=== PATIENT | male | born 1980 | race Caucasian/White ===

== ENCOUNTER 2016-10-29 13:44 | Emergency (ER) | payer SELFPAY ==
[~2016-10-29] VITALS: Ht 177.8 cm; Wt 75.0 kg
[2016-10-29 13:45] VITALS: BP 138/82; PULSE 82; RESP 15; TEMP 98.1; O2SAT 100
--- NOTE | 2016-10-29 14:04 | PD ---
HPI Chief Complaint: Skin Problem Time Seen by Provider: 13:54 Travel History International Travel<30 days: No Contact w/Intl Traveler<30days: No Traveled to known affect area: No History of Present Illness HPI Patient comes in complaining of right forearm abscess that began approximately 3 days ago. Patient states that he is a reformed IV drug user of 1 week. Patient states he noticed it was getting larger and management to squeeze some pus out of it today that seemed to help. Patient reports minimal pain around this without radiation. Denies anything making it worse. Denies any fevers, nausea, vomiting, numbness or tingling anywhere, chest pain, or shortness of breath. PFSH Past Medical History Hx Anticoagulant Therapy: No Cardiovascular Problems: No Chemotherapy: No Cerebrovascular Accident: No Diabetes: No Hepatitis: Yes Respiratory: No Immunizations Current: Yes Past Surgical History Hysterectomy: No Social History Alcohol Use: Yes (RARELY) Tobacco Use: Yes (1 PPD) Substance Use: Yes (HEROIN, COCAINE, MARIJUANA ) Allergies-Medications (Allergen,Severity, Reaction): Coded Allergies: No Known Allergies (Unverified , 10/29/16) Reported Meds & Prescriptions Reported Meds & Active Scripts Active Keflex (Cephalexin) 500 Mg Cap 500 Mg PO Q8H Bactrim DS (Sulfamethoxazole-Trimethoprim) 800-160 Mg Tab 1 Tab PO BID Review of Systems Except as stated in HPI: all other systems reviewed are Neg Physical Exam Narrative GENERAL: Well-developed, well nourished, in no acute distress, and non-ill appearing. SKIN: Minimal erythematous indurated area of cellulitis noted right forearm. There is no fluctuation, crepitus, or drainage. There is a superficial abrasion over from her patient squeezed pus out reportedly. There is no foreign body noted. there is no streaking. HEAD: Atraumatic. Normocephalic. EYES: Pupils equal and round. EOMI. No scleral icterus. No injection or drainage. ENT: No nasal bleeding or discharge. Mucous membranes pink and moist. NECK: Trachea midline. Supple. No nuclear rigidity. RESPIRATORY: No accessory muscle use. No respiratory distress. MUSCULOSKELETAL: No obvious deformities. No clubbing. No cyanosis. No edema. Full range of motion. NEUROLOGICAL: Awake and alert. No obvious cranial nerve deficits. Motor grossly within normal limits. Normal speech. PSYCHIATRIC: Appropriate mood and affect; insight and judgment normal. Data Data Last Documented VS Vital Signs Date Time Temp Pulse Resp B/P (MAP) Pulse Ox O2 Delivery O2 Flow Rate FiO2 10/29/16 14:16 10/29/16 13:45 98.1 82 15 100 [facility] Medical Decision Making Medical Screen Exam Complete: Yes Emergency Medical Condition: Yes Differential Diagnosis Abscess, cellulitis, immature abscess, gangrene, other Narrative Course The patient has no evidence of obvious abscess at this time. The patient will be discharged on antibiotics for cellulitis with possible early/immature abscess. Clinical suspicion, diagnosis and care management was discussed. The patient was given signs and symptoms warnings for worsening infection, such as spreading of redness, increasing pain, and/or swelling, associated heat, pus or fever and instructed to return immediately if these signs or symptoms worsen. The patient is to return in 2 days for recheck for maturity. Sooner if worsens or as needed. The patient agrees with plan. Patient in no obvious distress upon re-evaluation. Patient was asked if they wanted to speak to my attending, which the patient did not wish to do at this time. Any questions/concerns in reference to patient diagnosis/condition discussed and clarified prior to patient's discharge. Reinforced sheer importance of close follow up with patient's primary physician or primary care clinic. Instructed patient to return to ED immediately, if symptoms return/ worsen. Pt showed understanding of above instructions. Further instructions and recommendations were detailed in discharge paperwork. Pt ambulated without difficulty out of ED at discharge. Diagnosis Primary Impression: Cellulitis Qualified Codes: L03.113 - Cellulitis of right upper limb Patient Instructions: Abscess (GEN), Cellulitis (ED), General Instructions Additional Instructions: Follow-up with your primary care physician or return here in 2 days for recheck. Take all medication as prescribed. Apply warm compresses to affected area multiple times throughout the dates to allow for maturity. Keep area dry and clean as possible using soap and water. Return to the emergency department sooner if symptoms get worse, fevers, chest pain, shortness breath, unable to tolerate fluids, or for other concerns. Med/Other Pt SpecificInfo: Prescription(s) given Scripts Cephalexin (Keflex) 500 Mg Cap 500 MG PO Q8H for Infection, #30 CAP 0 Refills Prov: Meliza Paul MD 10/29/16 Sulfamethoxazole-Trimethoprim (Bactrim DS) 800-160 Mg Tab 1 TAB PO BID for Infection, #20 TAB 0 Refills Prov: Meliza Paul MD 10/29/16 Disposition: 01 DISCHARGE HOME Condition: Stable Ilan Thornton Oct 29, 2016 14:04
[2016-10-29] MEDS ORDERED: BACT800T5 PO (14:05)
[2016-10-29] MEDS ORDERED: CEPH-460 PO (14:05)
== END 2016-10-29 14:34 | disposition home or self-care (01) ==
LOC: NEPE 13:44
DX: L03.113 Cellulitis of right upper limb (principal)
CPT/HCPCS: 99284

== ENCOUNTER 2016-10-31 21:34 | Inpatient (IN) | payer SELFPAY ==
[~2016-10-31] VITALS: Ht 177.8 cm; Wt 71.6 kg
[~2016-10-31 21:34] MED LIST: BACT800T5 PO; CEPH-460 PO
[2016-10-31 21:36] VITALS: BP 132/82; PULSE 114; RESP 16; TEMP 100.7; O2SAT 96
[2016-10-31] MEDS ORDERED: SODIUM CHLOR 0.9% 1000 ML INJ 1,000 ML IV ONE ×2 (22:00→22:30)
--- NOTE | 2016-10-31 22:04 | PD ---
HPI Chief Complaint: Skin Problem Time Seen by Provider: 21:50 Travel History International Travel<30 days: No Contact w/Intl Traveler<30days: No Traveled to known affect area: No History of Present Illness HPI The patient is a 36 year old male who presents to the [facility] emergency department with a history of reportedly developing a right forearm abscess on the lateral aspect approximately 5 days ago. The patient was seen in the emergency department on November 15 related to these symptoms and at that time the area of swelling was small and there was some drainage earlier in the day, however no drainage noted at that time. The patient had not had any fevers and no blood work was done at that point. The patient was discharged home with Keflex and Bactrim, however he reports that he did not get it filled and today when he began to have fever and increased swelling and pain in the right arm he then tried to go to the pharmacy to fill his prescriptions, however no pharmacies were open as it is Labor Day. The patient reports that he's had a fever with a MAXIMUM TEMPERATURE of 102 today. He reports having chills, nausea , no vomiting, no diarrhea. He reports he has been moving his bowels regularly. The patient reports that he last took Tylenol for fever between 4 and 5 PM. He denies any prior history of skin infections. He reports a history of IV drug use, however he is currently in a sober house and will be clean and sober for a week on tomorrow. On review of systems, the patient denies any headache, cough, congestion, neck pain, chest pain, shortness of breath, abdominal pain, diarrhea, urinary symptoms, or neurologic symptoms. 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 He is unsure of the location. He reports he was placed on Coumadin for 6 months. He reports that they could not determine the cause of the blood clots. He reports that he was not using IV drugs at this time. The patient is currently living in a sober house. 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 The patient has a history of hepatitis C. Hx Anticoagulant Therapy: No Cardiovascular Problems: No Chemotherapy: No Cerebrovascular Accident: No Diabetes: No Diminished Hearing: No Hepatitis: Yes (Hep C) Respiratory: No Immunizations Current: Yes Tetanus Vaccination: < 5 Years Influenza Vaccination: No Past Surgical History Narrative Surgical The patient's past surgical history is reportedly none. Surgical History: No Previous Surgery Hysterectomy: No Social History Alcohol Use: Yes (RARELY) Tobacco Use: Yes (1 PPD) Substance Use: Yes (HEROIN, COCAINE, MARIJUANA- he will be one week clean tomorrow) Allergies-Medications (Allergen,Severity, Reaction): Coded Allergies: No Known Allergies (Unverified , 10/29/16) Reported Meds & Prescriptions Reported Meds & Active Scripts Active Keflex (Cephalexin) 500 Mg Cap 500 Mg PO Q8H Bactrim DS (Sulfamethoxazole-Trimethoprim) 800-160 Mg Tab 1 Tab PO BID Review of Systems Except as stated in HPI: all other systems reviewed are Neg General / Constitutional: Positive: Fever, Chills Eyes: No: Visual changes HENT: No: Headaches Cardiovascular: No: Chest Pain or Discomfort Respiratory: No: Shortness of Breath Gastrointestinal: Positive: Nausea, No: Vomiting, Diarrhea, Abdominal Pain, Changes in Bowel Habits, Indigestion, Loss of Appetite Genitourinary: No: Dysuria Musculoskeletal: Positive: Myalgias, Edema, Pain Skin: No Rash Neurologic: No: Weakness Psychiatric: No: Depression Endocrine: No: Polydipsia Hematologic/Lymphatic: No: Easy Bruising Physical Exam Narrative General: The patient is a well-developed well-nourished male in no acute distress Head and Neck exam: Head is normocephalic atraumatic. Eyes: EOMI, pupils are equal round and reactive to light. Nose: Midline septum with pink mucous membranes Mouth: Dentition unremarkable. Tacky mucus membranes. Posterior oropharynx is not erythematous. No tonsillar hypertrophy. Uvula midline. Airway patent. Neck: No palpable lymphadenopathy. No nuchal rigidity. No thyromegaly. Cardiovascular: Sinus tachycardia in the 1 teens without murmurs, gallops, or rubs. No pulse deficit to the extremities and simultaneous auscultation and palpation of his radial artery. Lungs: Clear to auscultation bilaterally. No wheezes, rhonchi, or rales. Abdomen: Soft, without tenderness to palpation in all 4 quadrants of the abdomen. No guarding, rebound, or rigidity. Normal bowel sounds are audible. No tenderness on palpation of McBurney's point. Extremities: No clubbing, cyanosis, or edema. 2+ pulses in all 4 extremities. The area of interest is the right upper extremity. The patient has significant swelling of the right forearm and distal right arm above the elbow. There is no lymphangitis. There is no axillary lymphadenopathy. The patient has tenderness on palpation over the area of redness. There is warmth. The patient has no fluctuance noted. The compartments of the arm are still soft at this point. Patient has intact sensation over all fingertips with full range of motion of his wrist and hand. There is an area of superficial breakdown of skin that is circular along the radial aspect of the forearm near the antecubital fossa. No drainage is noted. Back: No costovertebral angle tenderness to palpation. Neurologic Exam: Grossly nonfocal Skin Exam: No rash noted. Data Data Last Documented VS Vital Signs Date Time Temp Pulse Resp B/P (MAP) Pulse Ox O2 Delivery O2 Flow Rate FiO2 10/31/16 22:11 101.1 104 20 135/69 (91) 96 Room Air Orders Orders Complete Blood Count With Diff (10/31/16 21:53) Comprehensive Metabolic Panel (10/31/16 21:53) Blood Culture (10/31/16 21:53) C-Reactive Protein (Crp) (10/31/16 21:53) Magnesium (Mg) (10/31/16 21:53) Chest, Single Ap (10/31/16 21:53) Iv Access Insert/Monitor (10/31/16 21:53) Ecg Monitoring (10/31/16 21:53) Oximetry (10/31/16 21:53) Lactic Acid Sepsis Protocol (10/31/16 21:53) Sodium Chlor 0.9% 1000 Ml Inj (Ns 1000 M (10/31/16 22:00) Us Arm Venous Doppler (10/31/16 22:02) Vancomycin Inj (Vancomycin Inj) (10/31/16 22:15) Piperacil-Tazo 3.375 Gm Premix (Zosyn 3. (10/31/16 22:15) Sodium Chlor 0.9% 1000 Ml Inj (Ns 1000 M (10/31/16 22:30) Admit Order (Ed Use Only) (10/31/16 23:30) Labs Laboratory Tests Test 10/31/16 22:30 White Blood Count 16.6 TH/MM3 Red Blood Count 4.59 MIL/MM3 Hemoglobin 13.4 GM/DL Hematocrit 39.3 % Mean Corpuscular Volume 85.7 FL Mean Corpuscular Hemoglobin 29.1 PG Mean Corpuscular Hemoglobin Concent 34.0 % Red Cell Distribution Width 12.7 % Platelet Count 270 TH/MM3 Mean Platelet Volume 6.8 FL Neutrophils (%) (Auto) 77.8 % Lymphocytes (%) (Auto) 14.0 % Monocytes (%) (Auto) 6.5 % Eosinophils (%) (Auto) 1.3 % Basophils (%) (Auto) 0.4 % Neutrophils # (Auto) 12.9 TH/MM3 Lymphocytes # (Auto) 2.3 TH/MM3 Monocytes # (Auto) 1.1 TH/MM3 Eosinophils # (Auto) 0.2 TH/MM3 Basophils # (Auto) 0.1 TH/MM3 CBC Comment DIFF FINAL Differential Comment Blood Urea Nitrogen 11 MG/DL Creatinine 0.90 MG/DL Random Glucose 110 MG/DL Total Protein 7.5 GM/DL Albumin 3.5 GM/DL Calcium Level 9.0 MG/DL Magnesium Level 2.2 MG/DL Alkaline Phosphatase 68 U/L Aspartate Amino Transf (AST/SGOT) 22 U/L Alanine Aminotransferase (ALT/SGPT) 38 U/L Total Bilirubin 0.3 MG/DL Sodium Level 130 MEQ/L Potassium Level 4.1 MEQ/L Chloride Level 96 MEQ/L Carbon Dioxide Level 28.1 MEQ/L Anion Gap 6 MEQ/L Estimat Glomerular Filtration Rate 95 ML/MIN Lactic Acid Level 0.8 mmol/L C-Reactive Protein 18.00 MG/DL [facility] Medical Decision Making Medical Screen Exam Complete: Yes Emergency Medical Condition: Yes Medical Record Reviewed: Yes Interpretation(s) Last Impressions Upper Extremity Ultrasound 10/31/162201 Signed Impressions: Service Date/Time: Monday, October 31, 2016 22:30 - CONCLUSION: 1. No sonographic evidence right upper extremity DVT. 2. Probable small 2.2 x 1.4 x 1.0 cm superficial abscess in the mid forearm, corresponding to region of cellulitis. Donta Montelongo MD Chest X-Ray 10/31/162152 Signed Impressions: Service Date/Time: Monday, October 31, 2016 22:28 - CONCLUSION: No acute disease. Ruben Salazar MD Differential Diagnosis Sepsis related to cellulitis, versus DVT, versus cellulitis without sepsis, versus bacteremia, versus compartment syndrome Narrative Course During the course of the patients emergency department visit, the patients history, examination, and differential diagnosis were reviewed with the patient. The patient had IV access obtained and blood work sent for analysis. The patient was placed on a monitoring specialist with oximetry and blood pressure monitoring. A lactic acid, blood cultures 2 were ordered. An ultrasound to rule out DVT of the right upper extremity was ordered. The patient was initially provided normal saline 1 L IV fluid bolus. The patient was started on vancomycin and Zosyn IV The patients laboratory studies were reviewed and remarkable for white count of 16.6, hemoglobin 13.4, platelets 270 with neutrophils 77.8, CMP is remarkable for sodium of 1:30, chloride 96, glucose 110, lactic acid 0.8, C- reactive protein is 18 Radiology studies were reviewed and remarkable for a chest x-ray that shows no acute cardiopulmonary disease, ultrasound reveals no evidence of DVT, probable small 2 x 2 x 1.4 x 1 cm superficial abscess in the mid forearm, corresponding to the region of cellulitis. The patient will be admitted to the hospital for continuation on IV antibiotic. The patients results were discussed with the patient, including the plan of care. I explained that further testing and/ or monitoring is indicated based on the patients history, examination, and/ or laboratory findings. Therefore, I recommended admission for additional evaluation. The patient expressed understanding and was agreeable with this plan. The patient was admitted to the hospital in stable condition and sent to a bed under the care of the [facility] service. Sepsis Criteria SIRS Criteria (2 or more): Temp > 100.9 or < 96.8, Heart rate over 90, WBC > 39217, < 4000 or > 10% bands Sepsis Criteria (SIRS+source): Infect source susp/known Criteria Outcome: Meets SIRS criteria, Meets sepsis criteria Physician Communication Physician Communication The patient's case was discussed with Dr. Ku for admission. He did agree to admit the patient for further evaluation and treatment at this time. Diagnosis Primary Impression: Right arm cellulitis Additional Impression: Sepsis Qualified Codes: A41.9 - Sepsis, unspecified organism Admitting Information Admitting Physician Requests: Admit Nicolle Crawley MD Oct 31, 2016 22:04
[2016-10-31 22:11] VITALS: BP 135/69; PULSE 104; RESP 20; TEMP 101.1; O2SAT 96
[2016-10-31] MEDS ORDERED: PIPERACIL-TAZO 3.375 GM PREMIX 50 ML IV ONE (22:15)
[2016-10-31] MEDS ORDERED: VANCOMYCIN INJ 1,000 MG in SODIUM CHLOR 0.9% 250 ML INJ 250 ML IV ONE (22:15)
--- NOTE | 2016-10-31 22:31 | RADRPT ---
EXAM DATE/TIME: 10/31/2016 22:28 [facility] COMPARISON: CHEST SINGLE AP, December 13, 2014, 8:25. INDICATIONS : IV drug user- abscess in right arm. No chest complaint. MEDICAL HISTORY : None. SURGICAL HISTORY : None. ENCOUNTER: Initial ACUITY: 1 day PAIN SCORE: 0/10 LOCATION: Bilateral chest FINDINGS: A single view of the chest demonstrates the lungs to be symmetrically aerated without evidence of mas s, infiltrate or effusion. The cardiomediastinal contours are unremarkable. Osseous structures are intact. CONCLUSION: No acute disease. Ruben Salazar MD on October 31, 2016 at 22:29 Board Certified Radiologist. This report was verified electronically.
[2016-10-31 22:49] LABS: AUTOMATED NEUTROPHIL # 12.9 TH/MM3 (1.8-7.7); BASOPHIL # 0.1 TH/MM3 (0-0.2); BASOPHIL % 0.4 % (0.0-2.0); EOSINOPHIL # 0.2 TH/MM3 (0-0.4); EOSINOPHIL % 1.3 % (0.0-4.0); HEMATOCRIT 39.3 % (39.0-51.0); HEMO FLAGS DIFF FINAL; LYMPHOCYTE # 2.3 TH/MM3 (1.0-4.8); MEAN CELL VOLUME 85.7 FL (80.0-100.0); MEAN CORPUSCULAR HEMOGLOBIN 29.1 PG (27.0-34.0); MONO % 6.5 % (0.0-8.0); NEUT % 77.8 % (16.0-70.0); PLATELET COUNT 270 TH/MM3 (150-450); RED BLOOD COUNT 4.59 MIL/MM3 (4.50-5.90); RED CELL DISTRIBUTION WIDTH 12.7 % (11.6-17.2); WHITE BLOOD COUNT 16.6 TH/MM3 (4.0-11.0)
[2016-10-31 23:09] LABS: ANION GAP 6 MEQ/L (5-15); AST (GOT) 22 U/L (15-37); BICARBONATE 28.1 MEQ/L (21.0-32.0); BLOOD UREA NITROGEN 11 MG/DL (7-18); CHLORIDE 96 MEQ/L (98-107); GLOMERULAR FILTRATION RATE 95 ML/MIN (>89); MAGNESIUM 2.2 MG/DL (1.5-2.5); POTASSIUM 4.1 MEQ/L (3.5-5.1); SODIUM (NA) 130 MEQ/L (136-145)
[2016-10-31 23:10] LABS: ALT (GPT) 38 U/L (12-78)
[2016-10-31 23:12] LABS: ALKALINE PHOSPHATASE 68 U/L (45-117); TOTAL BILIRUBIN ADULT 0.3 MG/DL (0.2-1.0)
--- NOTE | 2016-10-31 23:24 | RADRPT ---
EXAM DATE/TIME: 10/31/2016 22:30 [facility] COMPARISON: No previous studies available for comparison. INDICATIONS : Right arm redness and swelling. MEDICAL HISTORY : Hepatitis C. IV drug use. SURGICAL HISTORY : None. ENCOUNTER: Initial ACUITY: 1 week PAIN SCORE: 3/10 LOCATION: Right arm. FINDINGS: There is spontaneous flow documented in the brachial, basilic, cephalic, axillary, and subclavian vei ns. The vessels are compressible and augmentation response is documented. No filling defects are se en. The flow is phasic with respiration. Direction of flow in the jugular vein is caudal. Incidental note is made of a focal superficial mid forearm hypoechoic collection measuring 2.2 x 1.4 x 1.0 cm with associated regional hyperemia. CONCLUSION: 1. No sonographic evidence right upper extremity DVT. 2. Probable small 2.2 x 1.4 x 1.0 cm superficial abscess in the mid forearm, corresponding to region of cellulitis. Donta Montelongo MD on October 31, 2016 at 23:21 Board Certified Radiologist. This report was verified electronically.
[2016-11-01] VITALS (8 sets, daily range): BP systolic 111–134; BP diastolic 60–72; PULSE 84–99; RESP 16–18; TEMP 98.5–100.7; O2SAT 95–96
[2016-11-01] MEDS ORDERED: ACETAMINOPHEN 325 MG TAB PO ONE
[2016-11-01] MEDS ORDERED: NALOXONE HCL 0.4 MG/ML AMP IV PRN (01:30)
[2016-11-01] MEDS ORDERED: ONDANSETRON HCL 4 MG/2 ML VIAL IVP PRN (01:30)
[2016-11-01] MEDS ORDERED: ACETAMINOPHEN 325 MG TAB PO PRN (01:30)
[2016-11-01] MEDS ORDERED: SODIUM CHLORIDE 0.9% FLUSH 10 ML FLUSH IV FLUSH PRN (01:30)
[2016-11-01] MEDS ORDERED: BISACODYL 10 MG SUPP RECTAL PRN (01:30)
[2016-11-01] MEDS ORDERED: Vancomycin Consult Pharmacy 1 EA OTHER SCH (01:30)
[2016-11-01] MEDS ORDERED: ACETAMINOPHEN/HYDROcodone 325 MG/5 MG TAB PO PRN (01:30)
[2016-11-01] MEDS: SODIUM CHLOR 0.9% 1000 ML INJ 1,000 ML IV SCH ×4 (02:03→21:29)
[2016-11-01] MEDS: ACETAMINOPHEN/HYDROcodone 325 MG/7.5 MG TAB PO PRN ×4 (04:12→20:21)
--- NOTE | 2016-11-01 05:52 | HHI.HP ---
[facility] Service [facility] Primary Care Physician No Primary Care Physician Admission Diagnosis right arm cellulitis, sepsis Diagnoses: Chief Complaint: Abdominal pain Travel History International Travel<30 Days: No Contact w/Intl Traveler <30 Da: No Traveled to Known Affected Are: No History of Present Illness 36 years old male presented to the ED complaining of right upper forearm swelling and pain and fever, the lesion is about 15 cm with dry ulcer on top, patient has a history of IVDA, patient reported fever or chills decide the arm swelling, also nausea. Patient should it few days ago. Patient was seen in the hospital recently. Patient went to ED and prescribed Bactrim and Keflex but she never filled up the medication. Review of Systems Last Impressions Upper Extremity Ultrasound 10/31/162201 Signed Impressions: Service Date/Time: Monday, October 31, 2016 22:30 - CONCLUSION: 1. No sonographic evidence right upper extremity DVT. 2. Probable small 2.2 x 1.4 x 1.0 cm superficial abscess in the mid forearm, corresponding to region of cellulitis. Donta Montelongo MD Chest X-Ray 10/31/162152 Signed Impressions: Service Date/Time: Monday, October 31, 2016 22:28 - CONCLUSION: No acute disease. Ruben Salazar MD Past Family Social History Past Medical History Denied any significant past medical history blood clots in his brain in the year 1999. He is unsure of the location. He reports he was placed on Coumadin for 6 months. He reports that they could not determine the cause of the blood clots. He reports that he was not using IV drugs at this time. The patient is currently living in a sober house. 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 The patient has a history of hepatitis C. 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 SKIN: Erythematous skin on the right forearm with fluctuant 15 cm tender area with 2 cm seems to have drained now dry HEAD: Atraumatic. Normocephalic. EYES: Pupils equal round and reactive. Extraocular motions intact. No scleral icterus. ENT: Nose without bleeding, or drainage, Airway patent. NECK: Trachea midline. Supple CARDIOVASCULAR: Regular rate and rhythm without murmurs, gallops, or rubs. RESPIRATORY: Fair air entry bilaterally. No wheezes, rales, or rhonchi. GASTROINTESTINAL: Abdomen soft, tender to palpation of the epigastric area, nondistended. Positive bowel sounds MUSCULOSKELETAL: Extremities without clubbing, cyanosis, or edema. Pedal pulses appreciated, right upper forearm as above NEUROLOGICAL: Awake and alert. Moves all extremity. Normal speech.no focal neurological deficit Laboratory Laboratory Tests Test 10/31/16 22:30 White Blood Count 16.6 Red Blood Count 4.59 Hemoglobin 13.4 Hematocrit 39.3 Mean Corpuscular Volume 85.7 Mean Corpuscular Hemoglobin 29.1 Mean Corpuscular Hemoglobin Concent 34.0 Red Cell Distribution Width 12.7 Platelet Count 270 Mean Platelet Volume 6.8 Neutrophils (%) (Auto) 77.8 Lymphocytes (%) (Auto) 14.0 Monocytes (%) (Auto) 6.5 Eosinophils (%) (Auto) 1.3 Basophils (%) (Auto) 0.4 Neutrophils # (Auto) 12.9 Lymphocytes # (Auto) 2.3 Monocytes # (Auto) 1.1 Eosinophils # (Auto) 0.2 Basophils # (Auto) 0.1 CBC Comment DIFF FINAL Differential Comment Blood Urea Nitrogen 11 Creatinine 0.90 Random Glucose 110 Total Protein 7.5 Albumin 3.5 Calcium Level 9.0 Magnesium Level 2.2 Alkaline Phosphatase 68 Aspartate Amino Transf (AST/SGOT) 22 Alanine Aminotransferase (ALT/SGPT) 38 Total Bilirubin 0.3 Sodium Level 130 Potassium Level 4.1 Chloride Level 96 Carbon Dioxide Level 28.1 Anion Gap 6 Estimat Glomerular Filtration Rate 95 Lactic Acid Level 0.8 C-Reactive Protein 18.00 Date/Time Source Procedure Growth Status 10/31/16 22:30 Blood Peripheral Aerobic Blood Culture Pending Received 10/31/16 22:30 Blood Peripheral Anaerobic Blood Culture Pending Received Result Diagram: 10/31/16222910/31/162229 Imaging Last Impressions Upper Extremity Ultrasound 10/31/162201 Signed Impressions: Service Date/Time: Monday, October 31, 2016 22:30 - CONCLUSION: 1. No sonographic evidence right upper extremity DVT. 2. Probable small 2.2 x 1.4 x 1.0 cm superficial abscess in the mid forearm, corresponding to region of cellulitis. Donta Montelongo MD Chest X-Ray 10/31/162152 Signed Impressions: Service Date/Time: Monday, October 31, 2016 22:28 - CONCLUSION: No acute disease. Ruben Salazar MD Caprachelei VTE Risk Assessment Caprini VTE Risk Assessment: Mod/High Risk (score >= 2) Caprini Risk Assessment Model Point Value = 1 Point Value = 2 Point Value = 3 Point Value = 5 Age 41-60 Minor surgery BMI > 25 kg/m2 Swollen legs Varicose veins or History of unexplained or recurrent spontaneous Oral contraceptives or hormone replacement Sepsis (< 1 month) Serious lung disease, including pneumonia (< 1 month) Abnormal pulmonary function Acute myocardial infarction Congestive heart failure (< 1 month) History of inflammatory bowel disease Medical patient at bed rest Age 61-74 Arthroscopic surgery Major open surgery (> 45 min) Laparoscopic surgery (> 45 min) Malignancy Confined to bed (> 72 hours) Immobilizing plaster cast Central venous access Age >= 75 History of VTE Family history of VTE Factor V Leiden Prothrombin [id number] Lupus anticoagulant Anticardiolipin antibodies Elevated serum homocysteine Heparin-induced thrombocytopenia Other congenital or acquired thrombophilia Stroke (< 1 month) Elective arthroplasty Hip, pelvis, or leg fracture Acute spinal cord injury (< 1 month) Prophylaxis Regimen Total Risk Factor Score Risk Level Prophylaxis Regimen 0-1 Low Early ambulation 2 Moderate Order ONE of the following: *Sequential Compression Device (SCD) *Heparin 5000 units SQ BID 3-4 Higher Order ONE of the following medications: *Heparin 5000 units SQ TID *Enoxaparin/Lovenox 40 mg SQ daily (WT < 150 kg, CrCl > 30 mL/min) *Enoxaparin/Lovenox 30 mg SQ daily (WT < 150 kg, CrCl > 10-29 mL/min) *Enoxaparin/Lovenox 30 mg SQ BID (WT < 150 kg, CrCl > 30 mL/min) AND/OR *Sequential Compression Device (SCD) 5 or more Highest Order ONE of the following medications: *Heparin 5000 units SQ TID (Preferred with Epidurals) *Enoxaparin/Lovenox 40 mg SQ daily (WT < 150 kg, CrCl > 30 mL/min) *Enoxaparin/Lovenox 30 mg SQ daily (WT < 150 kg, CrCl > 10-29 mL/min) *Enoxaparin/Lovenox 30 mg SQ BID (WT < 150 kg, CrCl > 30 mL/min) AND *Sequential Compression Device (SCD) Assessment and Plan Assessment and Plan 36 years old male admitted with Severe sepsis with Severe right upper forearm swelling and erythema (cytosis with left shift, fever, tachycardia) history of recent drop shooting, rule out endocarditis Patient received Vanco and Zosyn in ED, we will continue Consult ID, monitor temperature Check 2-D echo Pain management To to keep O2 sat above 92% Monitor blood culture Consider surgical consult to clean the abscess H/O brain aneurysm coiling No acute issue, monitor blood pressure keep under control Case management: Follow case DVT prophylaxis with SCD, resume chemical when okay with ID Discussed Condition With Patient Physician Certification 2 Midnight Certification Type: Admission for Inpatient Services Order for Inpatient Services The services are ordered in accordance with Medicare regulations or non- Medicare payer requirements, as applicable. In the case of services not specified as inpatient-only, they are appropriately provided as inpatient services in accordance with the 2-midnight benchmark. Estimated LOS (days): 2 days is the estimated time the patient will need to remain in the hospital, assuming treatment plan goals are met and no additional complications. Post-Hospital Plan: Not yet determined Esteban Ku MD Nov 01, 2016 05:52
[2016-11-01] MEDS ORDERED: PIPERACIL-TAZO 4.5 GM PREMIX 100 ML IV SCH (06:30)
[2016-11-01] MEDS: DOCUSATE SODIUM 50 MG/SENNA 8.6 MG TAB PO SCH ×2 (08:15→20:22)
[2016-11-01] MEDS: HEPARIN SODIUM - SQ 10,000 UNITS/ML VIAL SQ SCH ×2 (08:15→17:22)
[2016-11-01] MEDS: SODIUM CHLORIDE 0.9% FLUSH 10 ML FLUSH IV FLUSH SCH ×2 (08:16→20:22)
[2016-11-01] MEDS ORDERED: VANCOMYCIN INJ 1,100 MG in SODIUM CHLOR 0.9% 250 ML INJ 250 ML IV SCH (09:00)
[2016-11-01] MEDS: PIPERACIL-TAZO 4.5 GM PREMIX 100 ML IV SCH ×2 (11:00→17:21)
--- NOTE | 2016-11-01 12:58 | PD.CONS ---
History of Present Illness Service Infectious disease Consult Requested By Dr Ku Reason for Consult Evaluate patient with right upper extremity cellulitis, has IV drug use Primary Care Physician No Primary Care Physician Diagnoses: History of Present Illness Patient seen and examined. Records reviewed. Patient is a 36-year-old male, with history of IV drug use, has injected in his right forearm about a week prior to admission. Soon after that he developed an area of redness, which apparently initially started out small about the size of a dime. It started getting a little bit bigger, and he first presented to the emergency room on October 29, and was diagnosed to have cellulitis. He was given Keflex and Bactrim, but the patient did not feel his prescription. The area of redness started getting bigger, and it started getting swollen, so he presented back to the hospital on October 31. Patient has had fever since admission. He denies any other complaint as far as respiratory, GI or any urinary complaints. His WBC 16.6. Ultrasound is showing possible superficial abscess, no evidence of DVT. Infectious disease consultation has been requested to evaluate the patient. Review of Systems Constitutional: COMPLAINS OF: Fever, Chills Eyes: DENIES: Eye pain, Vision loss Ears, nose, mouth, throat: DENIES: Nasal discharge, Oral lesions, Throat pain, Sinus Pain Respiratory: DENIES: Cough, Shortness of breath Cardiovascular: DENIES: Chest pain, Palpitations, Syncope Gastrointestinal: DENIES: Abdominal pain, Diarrhea, Nausea, Vomiting, Difficulty Swallowing Genitourinary: DENIES: Urgency, Hematuria, Dysuria, Nocturia Musculoskeletal: DENIES: Joint pain, Back pain, Neck pain Integumentary: DENIES: Pruritus, Rash Immunologic/allergic: DENIES: Urticaria Neurologic: DENIES: Headache Psychiatric: DENIES: Confusion, Hallucinations Past Family Social History Allergies: Coded Allergies: No Known Allergies (Unverified , 10/29/16) Past Medical History History of blood clot in the brain back in 1999, was on Coumadin Past Surgical History none Active Ordered Medications Tylenol [place] Dulcolax Heparin Morphine Zofran Zosyn Krystyna-Colace Vancomycin Family History unremarkable Social History smokes one pack per day of cigarettes Rare alcohol use Long history of illicit drug use, only started using IVs about 2 years ago Physical Exam Vital Signs Vital Signs Date Time Temp Pulse Resp B/P (MAP) Pulse Ox O2 Delivery O2 Flow Rate FiO2 9/5/17 12:00 98.8 92 16 119/64 (82) 95 11/01/16 08:00 98.5 84 16 111/60 (77) 95 11/01/16 04:00 99.8 95 18 123/68 (86) 95 11/01/16 00:54 97 18 128/69 (88) 10/31/16 22:11 101.1 104 20 135/69 (91) 96 Room Air 10/31/16 21:36 100.7 114 16 132/82 (99) 96 Physical Exam GENERAL: Patient is a well-nourished, well-developed male, awake and alert, not in respiratory distress. SKIN: Warm and dry. No generalized rash, no ecchymoses and no evidence of embolic lesions. HEAD: Atraumatic. Normocephalic. No temporal wasting, or tenderness. EYES: [place] conjunctiva. No petechia or hemorrhage. Pupils equal, round and reactive to light. Extraocular movements full and intact. No scleral icterus. No injection or drainage. EARS, NOSE AND THROAT: Nose without bleeding or purulent nasal discharge. No sinus tenderness. Mucous membranes pink and moist. No oral lesions noted. No exudate. No oral thrush. NECK: Trachea midline. Supple and not tender, no meningeal signs CARDIOVASCULAR: Regular rate and rhythm. No murmurs, rubs or gallops heard RESPIRATORY: Breath sounds equal bilaterally. Has diffuse wheezing ABDOMEN: Soft, flat, non-tender, nondistended. Bowel sounds present and normoactive. No guarding. No rebound. No organomegaly. EXTREMITIES: No clubbing, cyanosis, or edema in BLE. No joint effusion, has good ROM. No calf tenderness. Well perfused and warm. RUE: he has a large area of erythema and induration in the proximal half of his forearm, with some necrotic center, and with lymphangitis going up his upper arm. NO fluctuance NEUROLOGICAL: Awake and alert. Cranial nerves grossly intact. Motor grossly within normal limits. PSYCHIATRIC: Normal affect, calm and cooperative. LINE: No evidence of infection Laboratory Laboratory Tests Test 10/31/16 22:30 White Blood Count 16.6 Red Blood Count 4.59 Hemoglobin 13.4 Hematocrit 39.3 Mean Corpuscular Volume 85.7 Mean Corpuscular Hemoglobin 29.1 Mean Corpuscular Hemoglobin Concent 34.0 Red Cell Distribution Width 12.7 Platelet Count 270 Mean Platelet Volume 6.8 Neutrophils (%) (Auto) 77.8 Lymphocytes (%) (Auto) 14.0 Monocytes (%) (Auto) 6.5 Eosinophils (%) (Auto) 1.3 Basophils (%) (Auto) 0.4 Neutrophils # (Auto) 12.9 Lymphocytes # (Auto) 2.3 Monocytes # (Auto) 1.1 Eosinophils # (Auto) 0.2 Basophils # (Auto) 0.1 CBC Comment DIFF FINAL Differential Comment Blood Urea Nitrogen 11 Creatinine 0.90 Random Glucose 110 Total Protein 7.5 Albumin 3.5 Calcium Level 9.0 Magnesium Level 2.2 Alkaline Phosphatase 68 Aspartate Amino Transf (AST/SGOT) 22 Alanine Aminotransferase (ALT/SGPT) 38 Total Bilirubin 0.3 Sodium Level 130 Potassium Level 4.1 Chloride Level 96 Carbon Dioxide Level 28.1 Anion Gap 6 Estimat Glomerular Filtration Rate 95 Lactic Acid Level 0.8 C-Reactive Protein 18.00 Date/Time Source Procedure Growth Status 10/31/16 22:30 Blood Peripheral Aerobic Blood Culture - Preliminary NO GROWTH IN 1 DAY Resulted 10/31/16 22:30 Blood Peripheral Anaerobic Blood Culture - Preliminary NO GROWTH IN 1 DAY Resulted Result Diagram: 10/31/16 2230 10/31/16 2230 Imaging RADIOLOGY STUDIES/FILMS REVIEWED Upper Extremity Ultrasound 10/31/162201 Signed Impressions: Service Date/Time: Monday, October 31, 2016 22:30 - CONCLUSION: 1. No sonographic evidence right upper extremity DVT. 2. Probable small 2.2 x 1.4 x 1.0 cm superficial abscess in the mid forearm, corresponding to region of cellulitis. Donta Montelongo MD Chest X-Ray 10/31/162152 Signed Impressions: Service Date/Time: Monday, October 31, 2016 22:28 - CONCLUSION: No acute disease. Ruben Salazar MD Assessment and Plan Assessment and Plan IMPRESSION Possible sepsis due to RUE cellulitis RUE cellulitis from IVDU, with abscess, ?deeper Known IVDU RECOMMENDATION MRI RUE IF with abscess get surgery to do I and D Continue empiric Abx: vanco (For GPC, including MRSA) and Zosyn for GNR including PSAE Monitor progress Follow C/S Will determine course of Rx once work-up is completed I will follow along with you Thank you for this consultation Lolita Clinton MD Nov 01, 2016 12:58
[2016-11-01] MEDS: VANCOMYCIN INJ 1,500 MG in SODIUM CHLORID 0.9% 500 ML INJ 500 ML IV SCH (18:03)
[2016-11-02] VITALS (7 sets, daily range): BP systolic 131–155; BP diastolic 74–92; PULSE 86–97; RESP 17–20; TEMP 96.3–98.7; O2SAT 95–98
[2016-11-02] MEDS: HEPARIN SODIUM - SQ 10,000 UNITS/ML VIAL SQ SCH ×3 (00:22→17:15)
[2016-11-02] MEDS: PIPERACIL-TAZO 4.5 GM PREMIX 100 ML IV SCH ×5 (00:22→21:47)
[2016-11-02] MEDS: ACETAMINOPHEN/HYDROcodone 325 MG/7.5 MG TAB PO PRN ×4 (00:23→21:47)
[2016-11-02] MEDS: MORPHINE SULFATE 4 MG/ML INJ IV PRN (04:55)
[2016-11-02] MEDS: SODIUM CHLOR 0.9% 1000 ML INJ 1,000 ML IV SCH ×2 (04:58→18:17)
[2016-11-02] MEDS: VANCOMYCIN INJ 1,500 MG in SODIUM CHLORID 0.9% 500 ML INJ 500 ML IV SCH ×2 (04:58→18:17)
[2016-11-02 07:11] LABS: AUTOMATED NEUTROPHIL # 11.5 TH/MM3 (1.8-7.7); BASOPHIL # 0.1 TH/MM3 (0-0.2); BASOPHIL % 0.4 % (0.0-2.0); EOSINOPHIL # 0.3 TH/MM3 (0-0.4); EOSINOPHIL % 1.8 % (0.0-4.0); HEMATOCRIT 37.8 % (39.0-51.0); HEMO FLAGS DIFF FINAL; LYMPH % 10.9 % (9.0-44.0); LYMPHOCYTE # 1.6 TH/MM3 (1.0-4.8); MEAN CELL VOLUME 85.9 FL (80.0-100.0); MEAN CORPUSCULAR HEMOGLOBIN 28.8 PG (27.0-34.0); MEAN CORPUSCULAR HGB CONC 33.6 % (32.0-36.0); MONO % 7.3 % (0.0-8.0); NEUT % 79.6 % (16.0-70.0); PLATELET COUNT 295 TH/MM3 (150-450); RED CELL DISTRIBUTION WIDTH 13.1 % (11.6-17.2); WHITE BLOOD COUNT 14.5 TH/MM3 (4.0-11.0)
[2016-11-02 07:53] LABS: BICARBONATE 24.7 MEQ/L (21.0-32.0); POTASSIUM 3.9 MEQ/L (3.5-5.1)
[2016-11-02] MEDS: DOCUSATE SODIUM 50 MG/SENNA 8.6 MG TAB PO SCH ×2 (07:59→21:00)
[2016-11-02] MEDS: SODIUM CHLORIDE 0.9% FLUSH 10 ML FLUSH IV FLUSH SCH ×2 (07:59→21:00)
[2016-11-02] MEDS ORDERED: PHARMACY ORDERED LAB ONE (08:45)
[2016-11-02] MEDS ORDERED: GADODIAMIDE PF 287 MG/ML 5 ML VIAL (for RAD MRI) IVCONTRAST ONE (10:00)
--- NOTE | 2016-11-02 13:04 | HHI.IDPN ---
Subjective Subjective Remarks Patient is a 36-year-old male, with history of IV drug use, has injected in his right forearm about a week prior to admission. Soon after that he developed an area of redness, which apparently initially started out small about the size of a dime. It started getting a little bit bigger, and he first presented to the emergency room on October 29, and was diagnosed to have cellulitis. He was given Keflex and Bactrim, but the patient did not feel his prescription. The area of redness started getting bigger, and it started getting swollen, so he presented back to the hospital on October 31. Patient has had fever since admission. He denies any other complaint as far as respiratory, GI or any urinary complaints. His WBC 16.6. Ultrasound is showing possible superficial abscess, no evidence of DVT. Notes reviewed No fever MRI done, results pending Still with pain BC negative Antibiotics Vancomycin Zosyn Lines PIV Past Medical History Reviewed Allergies: Coded Allergies: No Known Allergies (Unverified , 10/29/16) Objective . Vital Signs Date Time Temp Pulse Resp B/P (MAP) Pulse Ox O2 Delivery O2 Flow Rate FiO2 11/02/16 10:46 98 11/02/16 08:00 97.1 96 17 137/86 (103) 95 11/02/16 04:00 98.4 91 18 131/79 (96) 95 11/02/16 00:00 98.3 86 18 131/74 (93) 95 11/01/16 20:04 95 11/01/16 20:00 100.7 99 18 132/72 (92) 95 11/01/16 17:25 96 11/01/16 16:00 99.1 91 17 134/72 (92) 95 . Laboratory Tests Test 10/31/16 22:30 11/02/16 06:15 White Blood Count 16.6 TH/MM3 14.5 TH/MM3 Red Blood Count 4.59 MIL/MM3 4.40 MIL/MM3 Hemoglobin 13.4 GM/DL 12.7 GM/DL Hematocrit 39.3 % 37.8 % Mean Corpuscular Volume 85.7 FL 85.9 FL Mean Corpuscular Hemoglobin 29.1 PG 28.8 PG Mean Corpuscular Hemoglobin Concent 34.0 % 33.6 % Red Cell Distribution Width 12.7 % 13.1 % Platelet Count 270 TH/MM3 295 TH/MM3 Mean Platelet Volume 6.8 FL 7.2 FL Neutrophils (%) (Auto) 77.8 % 79.6 % Lymphocytes (%) (Auto) 14.0 % 10.9 % Monocytes (%) (Auto) 6.5 % 7.3 % Eosinophils (%) (Auto) 1.3 % 1.8 % Basophils (%) (Auto) 0.4 % 0.4 % Neutrophils # (Auto) 12.9 TH/MM3 11.5 TH/MM3 Lymphocytes # (Auto) 2.3 TH/MM3 1.6 TH/MM3 Monocytes # (Auto) 1.1 TH/MM3 1.1 TH/MM3 Eosinophils # (Auto) 0.2 TH/MM3 0.3 TH/MM3 Basophils # (Auto) 0.1 TH/MM3 0.1 TH/MM3 CBC Comment DIFF FINAL DIFF FINAL Differential Comment Laboratory Tests Test 10/31/16 22:30 11/02/16 06:15 Blood Urea Nitrogen 11 MG/DL 7 MG/DL Creatinine 0.90 MG/DL 0.74 MG/DL Random Glucose 110 MG/DL 94 MG/DL Total Protein 7.5 GM/DL Albumin 3.5 GM/DL Calcium Level 9.0 MG/DL 8.7 MG/DL Magnesium Level 2.2 MG/DL Alkaline Phosphatase 68 U/L Aspartate Amino Transf (AST/SGOT) 22 U/L Alanine Aminotransferase (ALT/SGPT) 38 U/L Total Bilirubin 0.3 MG/DL Sodium Level 130 MEQ/L 138 MEQ/L Potassium Level 4.1 MEQ/L 3.9 MEQ/L Chloride Level 96 MEQ/L 106 MEQ/L Carbon Dioxide Level 28.1 MEQ/L 24.7 MEQ/L Anion Gap 6 MEQ/L 7 MEQ/L Estimat Glomerular Filtration Rate 95 ML/MIN 120 ML/MIN Lactic Acid Level 0.8 mmol/L C-Reactive Protein 18.00 MG/DL Microbiology Date/Time Source Procedure Growth Status 10/31/16 22:30 Blood Peripheral Aerobic Blood Culture - Preliminary NO GROWTH IN 2 DAYS Resulted 10/31/16 22:30 Blood Peripheral Anaerobic Blood Culture - Preliminary NO GROWTH IN 2 DAYS Resulted 10/31/16 22:30 Blood Peripheral Aerobic Blood Culture - Preliminary NO GROWTH IN 2 DAYS Resulted 10/31/16 22:30 Blood Peripheral Anaerobic Blood Culture - Preliminary NO GROWTH IN 2 DAYS Resulted Imaging Upper Extremity Ultrasound 10/31/162201 Signed Impressions: Service Date/Time: Monday, October 31, 2016 22:30 - CONCLUSION: 1. No sonographic evidence right upper extremity DVT. 2. Probable small 2.2 x 1.4 x 1.0 cm superficial abscess in the mid forearm, corresponding to region of cellulitis. Donta Montelongo MD Chest X-Ray 10/31/162152 Signed Impressions: Service Date/Time: Monday, October 31, 2016 22:28 - CONCLUSION: No acute disease. Ruben Salazar MD Physical Exam GENERAL: awake and alert, not in respiratory distress. SKIN: Warm and dry. No generalized rash HEAD: Atraumatic. Normocephalic. No temporal wasting, or tenderness. EYES: [place] conjunctiva. No petechia or hemorrhage. Pupils equal, round and reactive to light. No scleral icterus. No injection or drainage. EARS, NOSE AND THROAT: Nose without bleeding or purulent nasal discharge. No sinus tenderness. Mucous membranes pink and moist. No oral lesions noted. No exudate. No oral thrush. NECK: Trachea midline. Supple and not tender, no meningeal signs CARDIOVASCULAR: Regular rate and rhythm. No murmurs, rubs or gallops heard RESPIRATORY: Breath sounds equal bilaterally. Has diffuse wheezing ABDOMEN: Soft, flat, non-tender, nondistended. Bowel sounds present and normoactive. No guarding. No rebound. No organomegaly. EXTREMITIES: No clubbing, cyanosis, or edema in BLE. No joint effusion, has good ROM. No calf tenderness. Well perfused and warm. RUE: he has a large area of erythema and induration in the proximal half of his forearm, with some necrotic center, and with lymphangitis going up his upper arm. NO fluctuance NEUROLOGICAL: Awake and alert. Cranial nerves grossly intact. Motor grossly within normal limits. PSYCHIATRIC: Normal affect, calm and cooperative. LINE: No evidence of infection Assessment & Plan Remarks IMPRESSION Possible sepsis due to RUE cellulitis RUE cellulitis from IVDU, with abscess, ?deeper Known IVDU RECOMMENDATION MRI RUE If with abscess get surgery to do I and D Continue empiric Abx: vanco (For GPC, including MRSA) and Zosyn for GNR including PSAE Monitor progress Follow C/S Lloita Clinton MD Nov 02, 2016 13:04
--- NOTE | 2016-11-02 15:42 | ECHRPT ---
Indication: R/O ENDOCARDITIS CONCLUSIONS The left ventricular systolic function is normal with an estimated ejection fraction in the range of 60-65%. Normal left ventricular size. Wall thickness is normal. No regional wall motion abnormalities are present. No vegetations identified BP: 131 / 79 HR: 76 Rhythm: Sinus MEASUREMENTS (Male / Female) Normal Values Technical Quality:Fair 2D ECHO LV Diastolic Diameter PLAX 4.3 cm 4.2 - 5.9 / 3.9 - 5.3 cm LV Systolic Diameter PLAX 2.9 cm IVS Diastolic Thickness 1.1 cm 0.6 - 1.0 / 0.6 - 0.9 cm LVPW Diastolic Thickness 1.0 cm 0.6 - 1.0 / 0.6 - 0.9 cm LV Relative Wall Thickness 0.5 RV Internal Dim ED PLAX 2.5 cm LVOT Diameter 2.0 cm LA Systolic Diameter LX 3.3 cm 3.0 - 4.0 / 2.7 - 3.8 cm LV Ejection Fraction MOD 4C 60.6 % LV Cardiac Index MOD 4C 2336.7 cm/minm LV Ejection Fraction 4C AL 62.3 % LV Cardiac Index 4C AL 2491.8 cm/minm M-MODE Aortic Root Diameter MM 3.4 cm AV Cusp Separation MM 2.1 cm DOPPLER AV Peak Velocity 157.0 cm/s AV Peak Gradient 9.9 mmHg LVOT Peak Velocity 113.0 cm/s LVOT Peak Gradient 5.1 mmHg AV Area Cont Eq pk 2.3 cm MV Area PHT 4.3 cm Mitral E Point Velocity 85.9 cm/s Mitral A Point Velocity 72.1 cm/s Mitral E to A Ratio 1.2 LV E' Lateral Velocity 16.0 cm/s Mitral E to LV E' Lateral Ratio 5.4 LV E' Septal Velocity 10.4 cm/s Mitral E to LV E' Septal Ratio 8.3 FINDINGS LEFT VENTRICLE The left ventricular systolic function is normal with an estimated ejection fraction in the range of 60-65%. Normal left ventricular size. Wall thickness is normal. No regional wall motion abnormalities are present. RIGHT VENTRICLE Normal right ventricular size and systolic function. LEFT ATRIUM The left atrial size is normal. RIGHT ATRIUM The right atrial size is normal. ATRIAL SEPTUM Normal atrial septal thickness without atrial level shunting by limited color doppler interrogation. AORTA The aortic root and proximal ascending aorta are normal in size on limited imaging. MITRAL VALVE Structurally normal mitral valve. No mitral valve stenosis or regurgitation. AORTIC VALVE Trileaflet aortic valve. No aortic valve stenosis or regurgitation. TRICUSPID VALVE Structurally normal tricuspid valve. No tricuspid valve stenosis or regurgitation. PULMONARY VALVE The pulmonary valve is not well visualized. VESSELS The inferior vena cava is normal in size. PERICARDIUM No pericardial effusion. Saurabh Mueller MD (Electronically Signed) Final Date:02 November 2016 15:41
--- NOTE | 2016-11-02 16:43 | RADRPT ---
EXAM DATE/TIME: 11/02/2016 09:54 [facility] COMPARISON: US ARM RIGHT VENOUS DOPPLER, October 31, 2016, 22:30. INDICATIONS : Abscess. CONTRAST: 14 cc Omniscan (gadodiamide) IV MEDICAL HISTORY : Hepatitis C. SURGICAL HISTORY : None. ENCOUNTER: Subsequent ACUITY: 2 day PAIN SCORE: 5/10 LOCATION: Right Forearm. TECHNIQUE: Multiplanar multisequence MRI examination of the forearm was performed with and without contrast. FINDINGS: There is a soft tissue abnormality in the subcutaneous soft tissues of the mid and proximal lateral f orearm which measures the 6 cm in length and 2.1 cm in depth. Includes 2 rounded areas of T2 prolong ation and thickened surrounding soft tissues and thickened skin. On the postcontrast images, there i s diffuse enhancement about the area with no enhancement within the areas of T2 prolongation. The ap pearance is characteristic of a subcutaneous abscess. There is also some abnormal enhancement in the lateral adjacent muscles. No abnormal signal in the marrow of the radius or ulna. CONCLUSION: Soft tissue abscess with 2 central areas of nonenhancing fluid in overall dimension 6 cm. This is lo cated proximal and mid and lateral forearm, located in the subcutaneous soft tissues with some abnorm al enhancement in the adjacent muscle fibers. Satish Peter MD on November 02, 2016 at 16:35 Board Certified Radiologist. This report was verified electronically.
--- NOTE | 2016-11-02 19:24 | HHI.PR ---
Subjective Remarks Patient seen today around noon. Says he is feeling all right. Reports pain is controlled. Objective Vital Signs Date Time Temp Pulse Resp B/P (MAP) Pulse Ox O2 Delivery O2 Flow Rate FiO2 11/02/16 16:00 97.3 97 19 132/90 (104) 97 11/02/16 12:00 96.3 92 18 155/92 (113) 97 11/02/16 10:46 98 11/02/16 08:00 97.1 96 17 137/86 (103) 95 11/02/16 04:00 98.4 91 18 131/79 (96) 95 11/02/16 00:00 98.3 86 18 131/74 (93) 95 11/01/16 20:04 95 11/01/16 20:00 100.7 99 18 132/72 (92) 95 I/O 11/01/16 11/01/16 11/01/16 11/02/16 11/02/16 11/02/16 07:00 15:00 23:00 07:00 15:00 23:00 Intake Total 2740 ml 1200 ml 600 ml 1625 ml Output Total 500 ml 900 ml Balance 2240 ml 300 ml 600 ml 1625 ml Intake Oral 240 ml 700 ml 525 ml IV Total 2500 ml 500 ml 600 ml 1100 ml Output Urine Total 500 ml 900 ml # Voids 1 6 # Bowel Movements 0 0 0 Result Diagram: 11/02/16 0615 11/02/16 0615 Imaging Last Impressions Upper Extremity MRI 11/02/16 0000 Signed Impressions: Service Date/Time: Wednesday, November 02, 2016 09:54 - CONCLUSION: Soft tissue abscess with 2 central areas of nonenhancing fluid in overall dimension 6 cm. This is located proximal and mid and lateral forearm, located in the subcutaneous soft tissues with some abnormal enhancement in the adjacent muscle fibers. Satish Peter MD Upper Extremity Ultrasound 10/31/162201 Signed Impressions: Service Date/Time: Monday, October 31, 2016 22:30 - CONCLUSION: 1. No sonographic evidence right upper extremity DVT. 2. Probable small 2.2 x 1.4 x 1.0 cm superficial abscess in the mid forearm, corresponding to region of cellulitis. Donta Montelongo MD Chest X-Ray 10/31/162152 Signed Impressions: Service Date/Time: Monday, October 31, 2016 22:28 - CONCLUSION: No acute disease. Ruben Slaazar MD Objective Remarks GENERAL: patient sitting up in bed. No acute distress.alert and oriented 3. SKIN: Warm and dry. HEAD: Normocephalic. EYES: No scleral icterus. No injection or drainage. NECK: Supple, trachea midline. No JVD. CARDIOVASCULAR: Regular rate and rhythm without murmurs, gallops, or rubs. RESPIRATORY: Breath sounds equal bilaterally. No accessory muscle use. GASTROINTESTINAL: Abdomen soft, non-tender, nondistended. MUSCULOSKELETAL: No cyanosis, or edema. right arm erythema of forearm just distal to the antecubital space. tender topalpation. BACK: Nontender without obvious deformity. No CVA tenderness. A/P Assessment and Plan == 11/02/16. Patient continued with fever 100.7 overnight. White blood cell 14.5 improved from 16.6 on admission. Echocardiogram reviewed without vegetations. Continue broad-spectrum antibiotics as per infectious disease. = I have consult and general surgery secondary to abscess on MRI. 36 years old male admitted with Severe sepsis with Severe right upper forearm swelling and erythema (cytosis with left shift, fever, tachycardia) history of recent drop shooting, rule out endocarditis Patient received Vanco and Zosyn in ED, we will continue Consult ID, monitor temperature Check 2-D echo Pain management To to keep O2 sat above 92% Monitor blood culture -Slowly improving. Echocardiogram negative for vegetation. Continue antibiotics. Consult general surgery for incision and drainage. //H/O brain aneurysm coiling No acute issue, monitor blood pressure keep under control DVT prophylaxis with SCD, resume chemical when okay with ID, surgery Discharge Planning continues impatient treatment of sepsis,severe right arm abscess Jignesh Rodriguez MD Nov 02, 2016 19:24
[2016-11-03] VITALS: BP 141/82; PULSE 87; RESP 18; TEMP 97.8; O2SAT 97
[2016-11-03] MEDS: ACETAMINOPHEN/HYDROcodone 325 MG/7.5 MG TAB PO PRN ×4 (01:41→22:04)
[2016-11-03] MEDS: HEPARIN SODIUM - SQ 10,000 UNITS/ML VIAL SQ SCH ×3 (01:42→21:15)
[2016-11-03] MEDS: SODIUM CHLOR 0.9% 1000 ML INJ 1,000 ML IV SCH ×3 (03:29→23:29)
[2016-11-03] MEDS: PIPERACIL-TAZO 4.5 GM PREMIX 100 ML IV SCH ×4 (05:31→22:04)
[2016-11-03] MEDS: MORPHINE SULFATE 4 MG/ML INJ IV PRN (05:31)
[2016-11-03] MEDS ORDERED: PHARMACY ORDERED LAB ONE (05:45)
[2016-11-03] MEDS: VANCOMYCIN INJ 1,500 MG in SODIUM CHLORID 0.9% 500 ML INJ 500 ML IV SCH ×3 (06:00→22:04)
[2016-11-03 08:00] VITALS: BP 152/79; PULSE 89; RESP 16; TEMP 97.3; O2SAT 95
[2016-11-03] MEDS: SODIUM CHLORIDE 0.9% FLUSH 10 ML FLUSH IV FLUSH SCH ×2 (09:00→21:00)
[2016-11-03] MEDS: DOCUSATE SODIUM 50 MG/SENNA 8.6 MG TAB PO SCH ×2 (10:03→21:00)
[2016-11-03 12:00] VITALS: BP 140/83; PULSE 85; RESP 17; TEMP 95.9; O2SAT 96
[2016-11-03] MEDS ORDERED: PROPOFOL 200 MG/20 ML AMP IV ONE (12:00)
[2016-11-03] MEDS ORDERED: ONDANSETRON HCL 4 MG/2 ML VIAL IV PUSH ONE (12:00)
[2016-11-03] MEDS ORDERED: NEOMYCIN/POLYMYXIN 1 ML G.U. IRRIGANT IRRIGATION ONE (12:00)
--- NOTE | 2016-11-03 12:15 | MB ---
cc: JOSUE DURAND III, M.D. DATE OF CONSULTATION 11/03/2016 NOTE I am the second surgical consult on this patient's case. HISTORY OF PRESENT ILLNESS The patient is a 36-year-old white male who injected heroin into his right forearm and developed a large obvious abscess that is subcutaneous. He was admitted on 10/31/2016 and placed on antibiotics. Surgical consult was called but they were either unable or unwilling to take care of him, so then I was called in the middle the night today. PAST MEDICAL HISTORY Denied. PAST SURGICAL HISTORY Denied. MEDICATIONS AT HOME Denied. ALLERGIES NO KNOWN DRUG ALLERGIES. MEDICATIONS IN THE HOSPITAL 1. Vancomycin. 2. Zosyn. 3. P.r.n. medications. Upper extremity MRI was done on the which reveals soft tissue abscesses with two central areas of non-enhancing fluid and overall dimension 6 cm. This was located proximal and mid and lateral forms, located in the subcutaneous soft tissues. Some abnormal enhancement in the adjacent muscle fibers. Upper extremity ultrasound showed no sonographic evidence of right upper extremity DVT and a small 2-cm superficial abscess in the mid-forearm. LABORATORY DATA Laboratory studies were done with a white blood cell count of 14,500, hemoglobin 12.7 gm/dl, platelet count 295,000, BUN and creatinine of 7 and 0.74. REVIEW OF SYSTEMS The patient does not complain of any headaches, blurry or double vision. He is not complaining of any chest pain or palpitations. Not complaining of any coughing, wheezing, shortness breath. He is not complaining of any nausea, vomiting or abdominal pain. He is not complaining of any burning, frequency or urgency. Not complaining of any spine, neck or back pain. He is not complaining of any spine or back pain. He is not complaining of any anxiety, depression or suicidal ideations. He is not complaining of any night sweats, fevers or chills. PHYSICAL EXAMINATION GENERAL: Well-developed, well-nourished. In no apparent distress. VITAL SIGNS: Temperature is 97.3, blood pressure 152/79, heart rate 89, respiratory rate 16, pulse ox 95%. NEUROLOGIC: The patient is awake, alert and oriented x 3. He is very pleasant, sitting in his bed comfortably. EXTREMITIES: The right arm has a very obvious large subcutaneous abscess on the dorsal radial aspect of the mid-forearm. He is neurovascularly intact throughout. All musculotendinous units are intact. Capillary refill is less than 2 seconds in all fingertips. No epitrochlear or axillary adenopathy identified. There is a small area where it looks like there is some extrusion of purulence at some point. IMPRESSION AND PLAN Right forearm abscess. The patient needs incision and drainage. He just ate so we will have to wait until this afternoon or tonight. He understands and agrees and wishes to proceed. MD ARUN Vogt III/JERO /11:50 AM /12:02 PM
[2016-11-03] MEDS ORDERED: LIDOCAINE HCL 2% 50 ML VIAL ONE (16:25)
[2016-11-03] MEDS ORDERED: BUPIVACAINE HCL PF 0.5% 30 ML VIAL ONE (16:26)
[2016-11-03 20:00] VITALS: BP 130/77; PULSE 66; RESP 18; TEMP 97.4; O2SAT 96
[2016-11-03] MEDS ORDERED: DO NOT ADM ANY ANTICOAGULANT DRUGS PRN (20:51)
[2016-11-03] MEDS ORDERED: CHLORHEXIDINE GLUCONATE 2 % 1 PACK (2 CLOTHS) TOPICAL PRN (21:00)
[2016-11-03] MEDS ORDERED: METOPROLOL TARTRATE 25 MG TAB PO PRN (21:00)
[2016-11-03] MEDS ORDERED: INSULIN HUMAN REGULAR 1,000 UNITS/10 ML VIAL SQ PRN (21:00)
[2016-11-03] MEDS ORDERED: POVIDONE IODINE 5% (ANTISEPSIS KIT) 4 APPLICATIONS EACH NARE PRN (21:00)
[2016-11-03] MEDS ORDERED: LACTATED RINGER'S 1000 ML IV PRN (21:00)
[2016-11-03] MEDS ORDERED: SODIUM CHLORID 0.9% 500 ML IV PRN (21:00)
[2016-11-03] MEDS ORDERED: *HYDROmorphone PF 1 MG VIAL PERIprocedural Use ONLY ONE ×2 (21:01→21:15)
--- NOTE | 2016-11-03 21:15 | MP ---
cc: JOSUE ROLAND III, M.D. DATE OF SURGERY 11/03/2016 PREOPERATIVE DIAGNOSIS Right forearm abscess. PROCEDURE Right forearm abscess incision and drainage. SURGEON Marisol Roland III, MD PROCEDURE IN DETAIL The patient was brought to the operating room, placed supine on the operating table. After the correct site and side of surgery were verified by members of each team in the room multiple times including the patient and myself, after adequate preop markings and preoperative written consent were verified by everyone and after adequate preop time-out was performed to everyone's satisfaction, after adequate general anesthesia has been achieved the right upper extremity was prepped and draped in traditional sterile surgical fashion. A longitudinal incision was made over the area of the maximum fluctuance and carried down through the skin and subcutaneous tissue. A large amount of purulent drainage was encountered. This was sampled and passed off the field as a specimen by way of a culturette. Once this was done, the wound was probed and the abscess cavity was explored and two counter incisions at the farthest reaches were made, all longitudinally oriented. The abscess cavity was clean. There was no necrotic tissue or grossly infected tissue. A liters worth of saline antiseptic detergent solution was then used to thoroughly flush out the wound. Packing and a drain was inserted. The hand and arm were thoroughly cleansed and dried. There was no active bleeding. Hemostasis was present. A gentle circumferential Carlos wrap was applied from the palm to the elbow. The patient was awakened from anesthesia and transported to the Post Anesthesia Care Unit awake and in stable condition at the end of the case. Capillary refill less than 2 seconds in all fingertips. Sponge, needle, instrument counts were correct at the end of the case as reported by nurse in the room. MD ARUN Vogt III/ /8:47 PM /9:05 PM
--- NOTE | 2016-11-03 22:56 | HHI.PR ---
Subjective Remarks Patient seen this morning. Says he is feeling all right. Denies any chest pain or shortness breath. Reports pain is controlled. No bowel movement. Denies abdominal pain. Objective Vital Signs Date Time Temp Pulse Resp B/P (MAP) Pulse Ox O2 Delivery O2 Flow Rate FiO2 11/03/16 21:31 16 11/03/16 21:31 16 11/03/16 21:15 73 16 135/80 (98) 96 Room Air 11/03/16 21:00 81 16 154/89 (110) 100 Room Air 11/03/16 20:48 98.3 83 16 153/83 (106) 99 Room Air 11/03/16 12:00 95.9 85 17 140/83 (102) 96 11/03/16 08:00 97.3 89 16 152/79 (103) 95 11/03/16 06:12 18 11/03/16 03:00 18 11/03/16 00:00 97.8 87 18 141/82 (101) 97 I/O 11/02/16 11/02/16 11/02/16 11/03/16 11/03/16 11/03/16 06:59 14:59 22:59 06:59 14:59 22:59 Intake Total 600 ml 1625 ml 700 ml Output Total 570 ml Balance 600 ml 1625 ml 130 ml Intake Oral 525 ml 0 ml IV Total 600 ml 1100 ml 700 ml Output Urine Total 550 ml Estimated Blood Loss 20 ml # Voids 6 1 # Bowel Movements 0 0 Result Diagram: 11/02/16 0615 11/02/16 0615 Imaging Last Impressions Upper Extremity MRI 11/02/16 0000 Signed Impressions: Service Date/Time: Wednesday, November 02, 2016 09:54 - CONCLUSION: Soft tissue abscess with 2 central areas of nonenhancing fluid in overall dimension 6 cm. This is located proximal and mid and lateral forearm, located in the subcutaneous soft tissues with some abnormal enhancement in the adjacent muscle fibers. Satish Peter MD Upper Extremity Ultrasound 10/31/162201 Signed Impressions: Service Date/Time: Monday, October 31, 2016 22:30 - CONCLUSION: 1. No sonographic evidence right upper extremity DVT. 2. Probable small 2.2 x 1.4 x 1.0 cm superficial abscess in the mid forearm, corresponding to region of cellulitis. Donta Montelongo MD Chest X-Ray 10/31/16 7087 Signed Impressions: Service Date/Time: Monday, October 31, 2016 22:28 - CONCLUSION: No acute disease. Ruben Salazar MD Objective Remarks GENERAL: patient sitting up in bed. No acute distress.alert and oriented 3. SKIN: Warm and dry. HEAD: Normocephalic. EYES: No scleral icterus. No injection or drainage. NECK: Supple, trachea midline. No JVD. CARDIOVASCULAR: Regular rate and rhythm without murmurs, gallops, or rubs. RESPIRATORY: Breath sounds equal bilaterally. No accessory muscle use. GASTROINTESTINAL: Abdomen soft, non-tender, nondistended. MUSCULOSKELETAL: No cyanosis, or edema. right arm erythema of forearm just distal to the antecubital space. tender to palpation . Unchanged this morning. BACK: Nontender without obvious deformity. No CVA tenderness. A/P Assessment and Plan == 11/03/16. No fevers overnight. -Incision and drainage today by hand surgery. Continue antibiotics. -Constipation. Ordered laxatives. 36 years old male admitted with Severe sepsis with Severe right upper forearm swelling and erythema (cytosis with left shift, fever, tachycardia) history of recent drop shooting, rule out endocarditis Patient received Vanco and Zosyn in ED, we will continue Consult ID, monitor temperature Check 2-D echo Pain management To to keep O2 sat above 92% Monitor blood culture -Slowly improving. Echocardiogram negative for vegetation. Continue antibiotics. -11/03 status post incision and drainage by hand surgery. Follow-up cultures. Continue antibiotics. //H/O brain aneurysm coiling No acute issue, monitor blood pressure keep under control DVT prophylaxis with SCD, resume chemical when okay with ID, surgery Discharge Planning continues impatient treatment of sepsis,severe right arm abscess Jignesh Rodriguez MD Nov 03, 2016 22:56
[2016-11-03] MEDS ORDERED: MAGNESIUM HYDROXIDE SUSP 30 ML CUP PO ONE (23:00)
[2016-11-03] MEDS ORDERED: DOCUSATE SODIUM 50 MG/SENNA 8.6 MG TAB PO ONE (23:00)
[2016-11-04] VITALS (7 sets, daily range): BP systolic 121–163; BP diastolic 76–94; PULSE 68–92; RESP 18–20; TEMP 96.1–98.3; O2SAT 95–98
[2016-11-04] MEDS: HEPARIN SODIUM - SQ 10,000 UNITS/ML VIAL SQ SCH ×3 (01:30→16:33)
[2016-11-04] MEDS: MORPHINE SULFATE 4 MG/ML INJ IV PRN ×2 (01:41→20:45)
[2016-11-04] MEDS: PIPERACIL-TAZO 4.5 GM PREMIX 100 ML IV SCH ×3 (06:02→17:01)
[2016-11-04] MEDS: VANCOMYCIN INJ 1,500 MG in SODIUM CHLORID 0.9% 500 ML INJ 500 ML IV SCH ×2 (06:03→14:57)
[2016-11-04 07:26] LABS: AUTOMATED NEUTROPHIL # 7.2 TH/MM3 (1.8-7.7); BASOPHIL # 0.1 TH/MM3 (0-0.2); BASOPHIL % 0.6 % (0.0-2.0); EOSINOPHIL # 0.3 TH/MM3 (0-0.4); EOSINOPHIL % 2.9 % (0.0-4.0); HEMATOCRIT 34.7 % (39.0-51.0); HEMO FLAGS DIFF FINAL; LYMPHOCYTE # 1.8 TH/MM3 (1.0-4.8); MEAN CELL VOLUME 85.3 FL (80.0-100.0); MEAN CORPUSCULAR HEMOGLOBIN 28.5 PG (27.0-34.0); MEAN CORPUSCULAR HGB CONC 33.5 % (32.0-36.0); MONO % 7.1 % (0.0-8.0); NEUT % 71.4 % (16.0-70.0); PLATELET COUNT 341 TH/MM3 (150-450); RED BLOOD COUNT 4.07 MIL/MM3 (4.50-5.90); RED CELL DISTRIBUTION WIDTH 12.8 % (11.6-17.2)
[2016-11-04] MEDS: DOCUSATE SODIUM 50 MG/SENNA 8.6 MG TAB PO SCH ×2 (08:18→20:09)
[2016-11-04] MEDS: ACETAMINOPHEN/HYDROcodone 325 MG/7.5 MG TAB PO PRN ×2 (08:18→12:14)
[2016-11-04] MEDS: SODIUM CHLORIDE 0.9% FLUSH 10 ML FLUSH IV FLUSH SCH ×2 (08:20→20:09)
[2016-11-04] MEDS: SODIUM CHLOR 0.9% 1000 ML INJ 1,000 ML IV SCH (08:22)
--- NOTE | 2016-11-04 12:25 | HHI.PR ---
Subjective Remarks No new complaints right arm feeling better Objective Vital Signs Date Time Temp Pulse Resp B/P (MAP) Pulse Ox O2 Delivery O2 Flow Rate FiO2 11/04/16 12:00 97.8 86 19 147/94 (111) 95 11/04/16 09:20 16 11/04/16 08:00 96.5 68 18 142/89 (106) 95 11/04/16 04:00 97.1 74 18 121/76 (91) 96 11/04/16 01:46 18 11/04/16 00:00 96.1 75 18 130/77 (94) 96 11/03/16 21:31 16 11/03/16 21:31 16 11/03/16 21:15 73 16 135/80 (98) 96 Room Air 11/03/16 21:00 81 16 154/89 (110) 100 Room Air 11/03/16 20:48 98.3 83 16 153/83 (106) 99 Room Air 11/03/16 20:00 97.4 66 18 130/77 (94) 96 I/O 11/03/16 11/03/16 11/03/16 11/04/16 11/04/16 11/04/16 07:00 15:00 23:00 07:00 15:00 23:00 Intake Total 700 ml Output Total 570 ml Balance 130 ml Intake Oral 0 ml IV Total 700 ml Output Urine Total 550 ml Estimated Blood Loss 20 ml # Voids 1 1 # Bowel Movements 0 Result Diagram: 11/04/16 0618 11/04/16 0618 Objective Remarks Examination is right arm reveals the edema and erythema are significantly improved. I'm not able to express any further purulence. The wounds are clean. I removed the drain and the packing. Neurovascularly intact throughout Assessment and Plan Assessment and Plan Postop day 1 right forearm incision and drainage Start packing dressing changes. Patient to wash and dry his arms areas of discharge on oral antibiotics once sensitivities are identified. Follow-up as an outpatient Chao Roland III, MD Nov 04, 2016 12:25
[2016-11-04] MEDS ORDERED: PHARMACY ORDERED LAB ONE (13:45)
--- NOTE | 2016-11-04 14:48 | HHI.IDPN ---
Subjective Subjective Remarks Patient is a 36-year-old male, with history of IV drug use, has injected in his right forearm about a week prior to admission. Soon after that he developed an area of redness, which apparently initially started out small about the size of a dime. It started getting a little bit bigger, and he first presented to the emergency room on October 29, and was diagnosed to have cellulitis. He was given Keflex and Bactrim, but the patient did not feel his prescription. The area of redness started getting bigger, and it started getting swollen, so he presented back to the hospital on October 31. Patient has had fever since admission. He denies any other complaint as far as respiratory, GI or any urinary complaints. His WBC 16.6. Ultrasound is showing possible superficial abscess, no evidence of DVT. Notes reviewed No fever Had I and D abscess on his forearm C/S pending Still with pain BC negative Antibiotics Vancomycin Zosyn Lines PIV Past Medical History Reviewed Allergies: Coded Allergies: No Known Allergies (Unverified , 10/29/16) Objective . Vital Signs Date Time Temp Pulse Resp B/P (MAP) Pulse Ox O2 Delivery O2 Flow Rate FiO2 11/04/16 12:00 97.8 86 19 147/94 (111) 95 11/04/16 09:20 16 11/04/16 08:00 96.5 68 18 142/89 (106) 95 11/04/16 04:00 97.1 74 18 121/76 (91) 96 11/04/16 01:46 18 11/04/16 00:00 96.1 75 18 130/77 (94) 96 11/03/16 21:31 16 11/03/16 21:31 16 11/03/16 21:15 73 16 135/80 (98) 96 Room Air 11/03/16 21:00 81 16 154/89 (110) 100 Room Air 11/03/16 20:48 98.3 83 16 153/83 (106) 99 Room Air 11/03/16 20:00 97.4 66 18 130/77 (94) 96 . Laboratory Tests Test 11/04/16 06:18 White Blood Count 10.0 TH/MM3 Red Blood Count 4.07 MIL/MM3 Hemoglobin 11.6 GM/DL Hematocrit 34.7 % Mean Corpuscular Volume 85.3 FL Mean Corpuscular Hemoglobin 28.5 PG Mean Corpuscular Hemoglobin Concent 33.5 % Red Cell Distribution Width 12.8 % Platelet Count 341 TH/MM3 Mean Platelet Volume 6.4 FL Neutrophils (%) (Auto) 71.4 % Lymphocytes (%) (Auto) 18.0 % Monocytes (%) (Auto) 7.1 % Eosinophils (%) (Auto) 2.9 % Basophils (%) (Auto) 0.6 % Neutrophils # (Auto) 7.2 TH/MM3 Lymphocytes # (Auto) 1.8 TH/MM3 Monocytes # (Auto) 0.7 TH/MM3 Eosinophils # (Auto) 0.3 TH/MM3 Basophils # (Auto) 0.1 TH/MM3 CBC Comment DIFF FINAL Differential Comment Laboratory Tests Test 11/04/16 06:18 Creatinine 0.63 MG/DL Estimat Glomerular Filtration Rate 144 ML/MIN Microbiology Date/Time Source Procedure Growth Status 11/03/16 20:20 Abscess Arm Fungal Smear - Final NO FUNGAL ELEMENTS SEEN. Resulted 11/03/16 20:20 Abscess Arm Fungal Culture Pending Resulted 11/03/16 20:20 Abscess Arm Acid Fast Stain - Final NO ACID FAST BACILLI SEEN Resulted 11/03/16 20:20 Abscess Arm Mycobacterial Culture Pending Resulted 11/03/16 20:20 Abscess Arm Gram Stain - Final Resulted 11/03/16 20:20 Abscess Arm Wound Culture - Preliminary RESULTS PENDING Resulted Imaging Upper Extremity Ultrasound 10/31/162 Signed Impressions: Service Date/Time: Monday, October 31, 2016 22:30 - CONCLUSION: 1. No sonographic evidence right upper extremity DVT. 2. Probable small 2.2 x 1.4 x 1.0 cm superficial abscess in the mid forearm, corresponding to region of cellulitis. Donta Montelongo MD Chest X-Ray 10/31/162152 Signed Impressions: Service Date/Time: Monday, October 31, 2016 22:28 - CONCLUSION: No acute disease. Ruben Salazar MD Physical Exam GENERAL: awake and alert, NAD SKIN: Warm and dry. No generalized rash EYES: [place] conjunctiva. No petechia or hemorrhage. Pupils equal, round and reactive to light. No scleral icterus. No injection or drainage. EARS, NOSE AND THROAT: Nose without bleeding or purulent nasal discharge. No sinus tenderness. Mucous membranes pink and moist. No oral lesions noted. No exudate. No oral thrush. NECK: Trachea midline. Supple and not tender, no meningeal signs CARDIOVASCULAR: Regular rate and rhythm. No murmurs, rubs or gallops heard RESPIRATORY: Breath sounds equal bilaterally. Has diffuse wheezing ABDOMEN: Soft, flat, non-tender, nondistended. Bowel sounds present and normoactive. No guarding. No rebound. No organomegaly. EXTREMITIES: No clubbing, cyanosis, or edema in BLE. No joint effusion, has good ROM. No calf tenderness. Well perfused and warm. RUE: he has intact dressing in place. NEUROLOGICAL: Awake and alert. Cranial nerves grossly intact. Motor grossly within normal limits. PSYCHIATRIC: Normal affect, calm and cooperative. LINE: No evidence of infection Assessment & Plan Remarks IMPRESSION Possible sepsis due to RUE cellulitis, better RUE cellulitis from IVDU, with abscess, ?deeper - S/P I and D Known IVDU RECOMMENDATION Continue empiric Abx: vanco (For GPC, including MRSA) and Zosyn for GNR including PSAE Follow C/S and adjust Abx - can choose from sensitivity results to switch to oral Abx on D/C and give 14 days oral Abx on D/C - will have HEPAS follow culture results; call if with any question Will be available Lolita Mcgill MD Nov 04, 2016 14:48
[2016-11-04 15:26] LABS: BICARBONATE 24.7 MEQ/L (21.0-32.0); MAGNESIUM 2.2 MG/DL (1.5-2.5); POTASSIUM 3.8 MEQ/L (3.5-5.1)
[2016-11-04 15:27] LABS: VANCOMYCIN TROUGH 20.6 MCG/ML (5.0-10.0)
[2016-11-04] MEDS ORDERED: DOCUSATE SODIUM 50 MG/SENNA 8.6 MG TAB PO ONE (16:00)
--- NOTE | 2016-11-04 16:08 | HHI.PR ---
Subjective Remarks seen today around noon. Reports the pain is controlled. Denies any chest pain or shortness of breath.no bowel movement yet. Objective Vital Signs Date Time Temp Pulse Resp B/P (MAP) Pulse Ox O2 Delivery O2 Flow Rate FiO2 11/04/16 12:00 97.8 86 19 147/94 (111) 95 11/04/16 09:20 16 11/04/16 08:00 96.5 68 18 142/89 (106) 95 11/04/16 04:00 97.1 74 18 121/76 (91) 96 11/04/16 01:46 18 11/04/16 00:00 96.1 75 18 130/77 (94) 96 11/03/16 21:31 16 11/03/16 21:31 16 11/03/16 21:15 73 16 135/80 (98) 96 Room Air 11/03/16 21:00 81 16 154/89 (110) 100 Room Air 11/03/16 20:48 98.3 83 16 153/83 (106) 99 Room Air 11/03/16 20:00 97.4 66 18 130/77 (94) 96 I/O 11/03/16 11/03/16 11/03/16 11/04/16 11/04/16 11/04/16 07:00 15:00 23:00 07:00 15:00 23:00 Intake Total 700 ml Output Total 570 ml Balance 130 ml Intake Oral 0 ml IV Total 700 ml Output Urine Total 550 ml Estimated Blood Loss 20 ml # Voids 1 1 # Bowel Movements 0 Result Diagram: 11/04/16 0618 11/04/16 1350 Objective Remarks GENERAL: patient sitting up in bed. No acute distress.alert and oriented 3. no change SKIN: Warm and dry. HEAD: Normocephalic. EYES: No scleral icterus. No injection or drainage. NECK: Supple, trachea midline. No JVD. CARDIOVASCULAR: Regular rate and rhythm without murmurs, gallops, or rubs. RESPIRATORY: Breath sounds equal bilaterally. No accessory muscle use. GASTROINTESTINAL: Abdomen soft, non-tender, nondistended. MUSCULOSKELETAL: No cyanosis, or edema. right arm erythema of forearm just distal to the antecubital space. tender to palpation . Unchanged this morning. BACK: Nontender without obvious deformity. No CVA tenderness. A/P Assessment and Plan == 11/04/16. Leukocytosis improved. 10.0 today from 14.5 yesterday. -Follow up blood cultures. Continued on spectrum antibiotics. -Constipation. Ordered laxatives again. 36 years old male admitted with Severe sepsis with Severe right upper forearm swelling and erythema (cytosis with left shift, fever, tachycardia) history of recent drop shooting, rule out endocarditis Patient received Vanco and Zosyn in ED, we will continue Consult ID, monitor temperature Check 2-D echo-negative Pain management To to keep O2 sat above 92% Monitor blood culture -Slowly improving. Echocardiogram negative for vegetation. Continue antibiotics. -11/03 status post incision and drainage by hand surgery. Follow-up cultures. Continue antibiotics. -11/04. Continue antibiotics. Follow blood cultures. Patient saw his wound today, requesting more pain medications. Ordered. //H/O brain aneurysm coiling No acute issue, monitor blood pressure keep under control DVT prophylaxis with SCD, resume chemical when okay with ID, surgery Discharge Planning continues impatient treatment of sepsis,severe right arm abscess Jignesh Rodriguez MD Nov 04, 2016 16:08
[2016-11-05 00:17] VITALS: BP 134/80; PULSE 79; RESP 20; TEMP 97.8; O2SAT 94
[2016-11-05] MEDS: PIPERACIL-TAZO 4.5 GM PREMIX 100 ML IV SCH ×3 (00:21→11:24)
[2016-11-05] MEDS: HEPARIN SODIUM - SQ 10,000 UNITS/ML VIAL SQ SCH ×2 (02:04→08:28)
[2016-11-05] MEDS ORDERED: VANCOMYCIN INJ 1,500 MG in SODIUM CHLORID 0.9% 500 ML INJ 500 ML IV SCH (03:00)
[2016-11-05 04:00] VITALS: BP 150/97; PULSE 83; RESP 20; TEMP 97.6; O2SAT 92
[2016-11-05] MEDS: ACETAMINOPHEN/HYDROcodone 325 MG/10 MG TAB PO PRN ×2 (05:51→10:00)
[2016-11-05 08:00] VITALS: BP 151/97; PULSE 89; RESP 16; TEMP 97.8; O2SAT 98
[2016-11-05] MEDS: DOCUSATE SODIUM 50 MG/SENNA 8.6 MG TAB PO SCH (08:28)
[2016-11-05] MEDS: SODIUM CHLORIDE 0.9% FLUSH 10 ML FLUSH IV FLUSH SCH (08:29)
[2016-11-05] MEDS ORDERED: CEPH-460 PO (12:50)
[2016-11-06] MEDS ORDERED: PHARMACY ORDERED LAB ONE (14:45)
--- NOTE | 2016-11-06 21:45 | HHI.PR ---
Subjective Remarks Date of service 11/05/16. Patient seen around 11 AM. -Patient says he is feeling well. Reports pain is controlled. Denies any chest pain or shortness of breath. Does not 1 pain meds at discharge. - refusing to wait until culture results return. -Although this is an AGAINST MEDICAL ADVICE discharge, have given patient antibiotics to complete treatment course. Patient is under the understanding that this is not a recommended, puts his life/limb at risk due to the fact that we don't yet have sensitivities for appropriate by mouth antibiotic Objective I/O 11/05/16 11/05/16 11/05/16 11/06/16 11/06/16 11/06/16 07:00 15:00 23:00 07:00 15:00 23:00 # Voids 1 Result Diagram: 11/04/16 0618 11/04/16 1350 Objective Remarks GENERAL: patient sitting up in bed. No acute distress.alert and oriented 3. Again,, no change SKIN: Warm and dry. HEAD: Normocephalic. EYES: No scleral icterus. No injection or drainage. NECK: Supple, trachea midline. No JVD. CARDIOVASCULAR: Regular rate and rhythm without murmurs, gallops, or rubs. RESPIRATORY: Breath sounds equal bilaterally. No accessory muscle use. GASTROINTESTINAL: Abdomen soft, non-tender, nondistended. MUSCULOSKELETAL: No cyanosis, or edema. right arm erythema of forearm just distal to the antecubital space. tender to palpation . Unchanged this morning. BACK: Nontender without obvious deformity. No CVA tenderness. A/P Assessment and Plan == 11/05/16. Discharge consulted medical advice. Gram-positive cocci and culture, pending sensitivities. We'll give patient a prescription for Keflex to complete treatment course. 36 years old male admitted with Severe sepsis with Severe right upper forearm swelling and erythema (cytosis with left shift, fever, tachycardia) history of recent drop shooting, rule out endocarditis Patient received Vanco and Zosyn in ED, we will continue Consult ID, monitor temperature Check 2-D echo-negative Pain management To to keep O2 sat above 92% Monitor blood culture -Slowly improving. Echocardiogram negative for vegetation. Continue antibiotics. -11/03 status post incision and drainage by hand surgery. Follow-up cultures. Continue antibiotics. -11/04. Continue antibiotics. Follow blood cultures. Patient saw his wound today, requesting more pain medications. Ordered. //H/O brain aneurysm coiling No acute issue, monitor blood pressure keep under control DVT prophylaxis with SCD, resume chemical when okay with ID, surgery Discharge Planning Discharge AGAINST MEDICAL ADVICE. Antibiotics to complete treatment course however. Follow up with hand surgery. Jignesh Rodriguez MD Nov 06, 2016 21:44
--- NOTE | 2016-11-06 21:48 | HHI.DS ---
Discharge Summary Admission Date Oct 31, 2016 at 23:32 Discharge Date: Nov 05, 2016 Admitting Diagnosis right arm cellulitis, sepsis (1) Abscess of right forearm ICD Code: L02.413 - Cutaneous abscess of right upper limb Procedures Incision and drainage of right forearm abscess by hand surgery. Brief History - From Admission 36 years old male presented to the ED complaining of right upper forearm swelling and pain and fever, the lesion is about 15 cm with dry ulcer on top, patient has a history of IVDA, patient reported fever or chills decide the arm swelling, also nausea. Patient should it few days ago. Patient was seen in the hospital recently. Patient went to ED and prescribed Bactrim and Keflex but she never filled up the medication. CBC/BMP: 11/04/16 0618 11/04/16 1350 Significant Findings Laboratory Tests Test 11/04/16 06:18 11/04/16 13:50 Red Blood Count 4.07 MIL/MM3 (4.50-5.90) Hemoglobin 11.6 GM/DL (13.0-17.0) Hematocrit 34.7 % (39.0-51.0) Mean Platelet Volume 6.4 FL (7.0-11.0) Neutrophils (%) (Auto) 71.4 % (16.0-70.0) Random Glucose 186 MG/DL (74-106) Albumin 2.5 GM/DL (3.4-5.0) Calcium Level 8.2 MG/DL (8.5-10.1) Chloride Level 108 MEQ/L (98-107) Vancomycin Level Trough 20.6 MCG/ML (5.0-10.0) Imaging Last Impressions Upper Extremity MRI 11/02/16 0000 Signed Impressions: Service Date/Time: Wednesday, November 02, 2016 09:54 - CONCLUSION: Soft tissue abscess with 2 central areas of nonenhancing fluid in overall dimension 6 cm. This is located proximal and mid and lateral forearm, located in the subcutaneous soft tissues with some abnormal enhancement in the adjacent muscle fibers. Satihs Peter MD Upper Extremity Ultrasound 10/31/16 2202 Signed Impressions: Service Date/Time: Monday, October 31, 2016 22:30 - CONCLUSION: 1. No sonographic evidence right upper extremity DVT. 2. Probable small 2.2 x 1.4 x 1.0 cm superficial abscess in the mid forearm, corresponding to region of cellulitis. Donta Montelongo MD Chest X-Ray 10/31/16 8216 Signed Impressions: Service Date/Time: Monday, October 31, 2016 22:28 - CONCLUSION: No acute disease. Ruben Salazar MD Hospital Course Patient was admitted with severe sepsis. Blood cultures drawn. Imaging of right arm with abscess as above. Hand surgery consulted for incision and drainage. Cultures grew gram-positive cocci. Patient improved on broad- spectrum antibiotics. Patient decided to leave prior to sensitivities returning. Explained ramifications of this, and patient was able to convey understanding. Patient was given a course of Keflex to complete treatment course, will follow up with hand surgery as outpatient. Patient with suspected recent drug use. He does report drug use over week prior to coming in, however says he is living in a drug-free house, does not last her pain medications because they're not allowed. States he will get treatment. For problem-based summary for most recent progress note, please see below. == 11/05/16. Discharge consulted medical advice. Gram-positive cocci and culture, pending sensitivities. We'll give patient a prescription for Keflex to complete treatment course. 36 years old male admitted with Severe sepsis with Severe right upper forearm swelling and erythema (cytosis with left shift, fever, tachycardia) history of recent drop shooting, rule out endocarditis Patient received Vanco and Zosyn in ED, we will continue Consult ID, monitor temperature Check 2-D echo-negative Pain management To to keep O2 sat above 92% Monitor blood culture -Slowly improving. Echocardiogram negative for vegetation. Continue antibiotics. -11/03 status post incision and drainage by hand surgery. Follow-up cultures. Continue antibiotics. -11/04. Continue antibiotics. Follow blood cultures. Patient saw his wound today, requesting more pain medications. Ordered. //H/O brain aneurysm coiling No acute issue, monitor blood pressure keep under control DVT prophylaxis with SCD, resume chemical when okay with ID, surgery Pt Condition on Discharge: Stable Discharge Disposition: Discharge Home Discharge Time: > 30 minutes Discharge Instructions DIET: Follow Instructions for: As Tolerated, No Restrictions Follow up Referrals: Hand Surgery - 1 Week with Chao Roland III, MD PCP Follow-up - 1 Week New Medications: Cephalexin (Keflex) 500 Mg Capsule 500 MG PO Q6H for Infection for 14 Days, CAP 0 Refills Jignesh Rodriguez MD Nov 06, 2016 21:48
== END 2016-11-05 13:39 | disposition left against medical advice (07) | DRG 854 ==
LOC: NEPC 21:34 → NEDA 23:32 → N07A 11-01 03:58
PROVIDERS: ADMIT Internal Medicine; ATTEND Internal Medicine
PROC: 0J9G0ZZ Drainage of Right Lower Arm Subcutaneous Tissue and Fascia, Open Approach (ICD-10-PCS; principal; 2016-11-03 20:04)
DX: A41.9 Sepsis, unspecified organism (principal); L02.413 Cutaneous abscess of right upper limb; L03.113 Cellulitis of right upper limb; R65.20 Severe sepsis without septic shock; R00.0 Tachycardia, unspecified; F17.210 Nicotine dependence, cigarettes, uncomplicated; F19.90 Other psychoactive substance use, unspecified, uncomplicated; K59.00 Constipation, unspecified
CPT/HCPCS: 71010; 73220; 80048; 80053; 80069; 80202; 82565; 83605; 83735; 85025; 86140; 87015; 87040; 87070; 87102; 87116; 87205; 87206; 93306; 93971; 94150; 96365; 96375; A9579; J1170; J1644; J2270; J2405; J2543; J3370; J7030; J7040; J7050

== ENCOUNTER 2016-12-23 01:30 | Emergency (ER) | payer OTHER ==
[~2016-12-23] VITALS: Ht 177.8 cm; Wt 72.0 kg
[2016-12-23 01:38] VITALS: BP 123/78; PULSE 118; RESP 14; TEMP 98.6; O2SAT 90
[2016-12-23 01:41] VITALS: BP 123/78; PULSE 109; RESP 8; TEMP 98.6; O2SAT 95
[2016-12-23] MEDS ORDERED: NALOXONE HCL 0.4 MG/ML AMP IV PUSH ONE (02:00)
[2016-12-23] MEDS ORDERED: BACT800T5 PO (02:15)
[2016-12-23] MEDS ORDERED: CEPHALEXIN MONOHYDRATE 500 MG CAP PO ONE (02:15)
[2016-12-23] MEDS ORDERED: SULFAMETHOXAZOLE-TRIMETHOPRIM DS 800-160 MG TAB PO ONE (02:15)
[2016-12-23] MEDS ORDERED: CEPH-460 PO (02:15)
--- NOTE | 2016-12-23 02:22 | PD ---
HPI Chief Complaint: Alcohol/Drug Intoxication Time Seen by Provider: 02:11 Travel History International Travel<30 days: No Contact w/Intl Traveler<30days: No Traveled to known affect area: No History of Present Illness HPI 36-year-old white male presents to emergency department under [place] act by PD. The patient is IV heroin abuser. He was shooting up in the bathroom when he was found by personnel. The patient was too inebriated to care for himself and was brought in. The patient here is somnolent but arouses to stimuli. When he falls asleep his oxygen saturation drops below 90%. He is placed on 3 L of O2 by nasal cannula and he is given 0.4 mg of Narcan IV. Patient is aroused. Patient does complain of skin infections on his abdomen. Positive pus drainage. Denies any fever chills. Symptoms are mild. No alleviating factors. He denies any injections in his abdomen. Patient denies any suicidal homicidal ideation. PFSH Past Medical History Narrative Medical Hepatitis C, IV substance abuse Hx Anticoagulant Therapy: No Cancer: No Cardiovascular Problems: No Chemotherapy: No Cerebrovascular Accident: No Diabetes: No Diminished Hearing: No Endocrine: No Genitourinary: No Hepatitis: Yes (Hep C) Immune Disorder: No Musculoskeletal: No Neurologic: No Psychiatric: No Reproductive: No Respiratory: No Integumentary: Yes (IVDA) Immunizations Current: Yes Radiation Therapy: No Tetanus Vaccination: < 5 Years Influenza Vaccination: No Past Surgical History Hysterectomy: No Other Surgery: Yes (r arm) Social History Alcohol Use: Yes (RARELY) Tobacco Use: Yes (1 PPD) Substance Use: Yes (heroin) Allergies-Medications (Allergen,Severity, Reaction): Coded Allergies: No Known Allergies (Unverified , 12/23/16) Reported Meds & Prescriptions Reported Meds & Active Scripts Active Bactrim DS (Sulfamethoxazole-Trimethoprim) 800-160 Mg Tab 1 Tab PO BID Keflex (Cephalexin) 500 Mg Cap 500 Mg PO Q8H Review of Systems ROS Limitations: Intoxication Physical Exam Narrative GENERAL: Well-nourished, well-developed patient. Somnolent but arousable to noxious stimuli SKIN: Warm and dry. Patient has an area of erythema to the lower abdomen with an open draining abscess. Positive tenderness. No fluctuance or pointing HEAD: Normocephalic and atraumatic. EYES: No scleral icterus. No injection or drainage. ENT: No nasal drainage noted. Mucous membranes pink. Airway patent. NECK: Supple, trachea midline. Moves head freely without obvious discomfort. CARDIOVASCULAR: Regular rate and rhythm without murmurs, gallops, or rubs. RESPIRATORY: Breath sounds equal bilaterally. No accessory muscle use. GASTROINTESTINAL: Abdomen soft, non-tender, nondistended. EXTREMITIES: No cyanosis or edema. BACK: Nontender without obvious deformity. No CVA tenderness. NEURO: Patient is alert and oriented. no sensorimotor deficits. Nonfocal. Slurred speech. PSYCH: No delusions. No auditory or visual hallucinations. Data Data Last Documented VS Vital Signs Date Time Temp Pulse Resp B/P (MAP) Pulse Ox O2 Delivery O2 Flow Rate FiO2 12/23/16 01:41 98.6 109 8 123/78 (93) 95 Nasal Cannula 2.00 Orders Orders Naloxone Inj (Narcan Inj) (12/23/16 02:00) Cephalexin (Keflex) (12/23/16 02:15) Sulfamet-Trimeth Ds 800-160 Mg (Bactrim (12/23/16 02:15) MDM Medical Decision Making Medical Screen Exam Complete: Yes Emergency Medical Condition: Yes Medical Record Reviewed: Yes Differential Diagnosis Differential diagnoses: Alcohol intoxication, substance abuse, electrolyte abnormality, malingering Narrative Course Patient has IV access. He is given 0.4 mg of Narcan IV. Patient is on 3 L of O2 by nasal cannula. He is on the monitor. Patient is noted to have decreased respiratory drive therefore he was given Narcan. The patient is now more alert and maintaining his saturations. The patient will be monitored until he exhibits sobriety. The patient is given Bactrim DS and Keflex 500 mg by mouth for his abscess. Once he exhibits sobriety his [place]man act will be lifted and he will be able to be discharged. This is substance abuse, intoxication, abscess Diagnosis Primary Impression: Substance abuse Additional Impressions: Intoxication by drug Qualified Codes: F19.920 - Other psychoactive substance use, unspecified with intoxication, uncomplicated Abscess Patient Instructions: General Instructions Additional Instructions: Rest. Increase fluids. Avoid alcohol. Avoid illegal substances. Keflex and Bactrim DS. Daily wound care with soap, water, Neosporin. Follow-up with [facility] for detox. Do not operate a car or any heavy machinery under the influence of alcohol or drugs. Follow-up with a medical doctor this week. Return to the ER for emergencies Med/Other Pt SpecificInfo: Prescription(s) given, Wound Care Scripts Sulfamethoxazole-Trimethoprim (Bactrim DS) 800-160 Mg Tab 1 TAB PO BID for Infection, #20 TAB 0 Refills Prov: Shirley Olivas MD 12/23/16 Cephalexin (Keflex) 500 Mg Cap 500 MG PO Q8H for Infection, #30 CAP 0 Refills Prov: Shirley Olivas MD 12/23/16 Disposition: 01 DISCHARGE HOME Condition: Stable Jcaek Justice Dec 23, 2016 02:22
== END 2016-12-23 06:48 | disposition home or self-care (01) ==
LOC: NEPD 01:30
DX: F19.920 Other psychoactive substance use, unspecified with intoxication, uncomplicated (principal); F11.10 Opioid abuse, uncomplicated; L02.211 Cutaneous abscess of abdominal wall; B19.20 Unspecified viral hepatitis C without hepatic coma
CPT/HCPCS: 96374; 99284; J2310

== ENCOUNTER 2017-01-01 10:28 | Emergency (ER) | payer SELFPAY ==
--- NOTE | 2017-01-01 10:42 | PD ---
HPI Chief Complaint: OD/ Ingestion Time Seen by Provider: 10:37 Travel History International Travel<30 days: No Contact w/Intl Traveler<30days: No Traveled to known affect area: No History of Present Illness HPI 36-year-old male patient with history of IV drug use, used heroin today at around 9 AM, was found unresponsive by friends, and was given 4 mg of nasal Narcan by lifeguards on duty. He woke up and is fully awake when EMS arrived. He denies any other ingestions, had an episode of vomiting on scene. In the ER , he is refusing to be examined and wants to leave. He denies any other issues. Modifying Factors: None Associated Signs & Symptoms: Heroin overdose Risk Factors: IV drug use, opiate abuse PFSH Past Medical History Hx Anticoagulant Therapy: No Cancer: No Cardiovascular Problems: No Chemotherapy: No Cerebrovascular Accident: No Diabetes: No Diminished Hearing: No Endocrine: No Genitourinary: No Hepatitis: Yes (Hep C) Immune Disorder: No Musculoskeletal: No Neurologic: No Psychiatric: No Reproductive: No Respiratory: No Integumentary: Yes (IVDA) Immunizations Current: Yes Radiation Therapy: No Past Surgical History Hysterectomy: No Other Surgery: Yes (r arm) Social History Alcohol Use: Yes (RARELY) Tobacco Use: Yes (1 PPD) Substance Use: Yes (heroin) Allergies-Medications (Allergen,Severity, Reaction): Coded Allergies: No Known Allergies (Unverified , 12/23/16) Reported Meds & Prescriptions Reported Meds & Active Scripts Active Bactrim DS (Sulfamethoxazole-Trimethoprim) 800-160 Mg Tab 1 Tab PO BID Keflex (Cephalexin) 500 Mg Cap 500 Mg PO Q8H Review of Systems Except as stated in HPI: all other systems reviewed are Neg Physical Exam Narrative GENERAL: Well-developed young white male patient currently in no acute distress. Awake and oriented 3. SKIN: Focused skin assessment warm/dry. Notable for track felix to both antecubital regions. HEAD: Atraumatic. Normocephalic. EYES: Pupils equal and round. No scleral icterus. No injection or drainage. ENT: No nasal bleeding or discharge. Mucous membranes pink and moist. NECK: Trachea midline. No JVD. MUSCULOSKELETAL: No obvious deformities. No clubbing. No cyanosis. No edema. NEUROLOGICAL: Awake and alert. No obvious cranial nerve deficits. Motor grossly within normal limits. Normal speech. PSYCHIATRIC: Appropriate mood and affect; insight and judgment poor. MDM Medical Decision Making Medical Screen Exam Complete: Yes Emergency Medical Condition: Yes Medical Record Reviewed: Yes Differential Diagnosis Heroin overdose Narrative Course At this point, I have explained to the patient that the Narcan will likely run out within about an hour and he may overdose again and this time he may not make it if anybody does not find him. He states understanding. He states that he wants to try to go get rehabilitation on his own. He denies any homicidal or suicidal ideation. He is currently awake, alert, oriented 3, answering questions appropriately. I have explained to him the dangers of ongoing drug use as well as the fact that this overdose could've killed him if his friends do not find him and can still kill him if the Narcan runs out and he still has a significant amount of opiates within his system. He states understanding but wants to leave AGAINST MEDICAL ADVICE. AMA: The risks of leaving against medical advice without further evaluation treatment were discussed with the patient. These risks include cardiac dysfunction, cardiac dysrhythmia, possible heart attack, possible stroke or . The patient indicated understanding of these risks and appeared to have the capacity to make this decision. Diagnosis Primary Impression: Overdose Additional Impressions: Substance abuse Heroin overdose Patient Instructions: General Instructions Departure Forms: Tests/Procedures Disposition: 07 AGAINST MEDICAL ADVICE Condition: Stable Sly Fleming MD Jan 01, 2017 10:42
== END 2017-01-01 10:56 | disposition left against medical advice (07) ==
LOC: NEPC 10:28
DX: T40.1X1A Poisoning by heroin, accidental (unintentional), initial encounter (principal); F17.200 Nicotine dependence, unspecified, uncomplicated; Z86.19 Personal history of other infectious and parasitic diseases; Z79.899 Other long term (current) drug therapy
CPT/HCPCS: 99283

== ENCOUNTER 2017-01-13 20:46 | Emergency (ER) | payer SELFPAY ==
[~2017-01-13] VITALS: Ht 177.8 cm; Wt 70.0 kg
[2017-01-13 20:47] VITALS: BP 134/70; PULSE 85; RESP 16; TEMP 98.5; O2SAT 99
[2017-01-13] MEDS ORDERED: CEPH-460 PO (21:22)
[2017-01-13] MEDS ORDERED: BACT800T5 PO (21:22)
--- NOTE | 2017-01-13 21:25 | PD ---
HPI Chief Complaint: Laceration/Skin Injury Time Seen by Provider: 21:18 Travel History International Travel<30 days: No Contact w/Intl Traveler<30days: No Traveled to known affect area: No History of Present Illness HPI 36 year old white male presents to emergency department with complains of a rash /skin infection to his buttocks for the last month. He states that he sweats a lot and he said skin breakdown is been applying dressings but is getting worse. Pain is moderate. No alleviating factors. PFSH Past Medical History Narrative Medical Substance abuse, MRSA Hx Anticoagulant Therapy: No Cancer: No Cardiovascular Problems: No Chemotherapy: No Cerebrovascular Accident: No Diabetes: No Diminished Hearing: No Endocrine: No Genitourinary: No Hepatitis: Yes (Hep C) Immune Disorder: No Musculoskeletal: No Neurologic: No Psychiatric: No Reproductive: No Respiratory: No Integumentary: Yes (IVDA) Immunizations Current: Yes Radiation Therapy: No Past Surgical History Hysterectomy: No Other Surgery: Yes (r arm) Social History Alcohol Use: Yes (RARELY) Tobacco Use: Yes (1 PPD) Substance Use: Yes (heroin) Allergies-Medications (Allergen,Severity, Reaction): Coded Allergies: No Known Allergies (Unverified , 12/23/16) Reported Meds & Prescriptions Reported Meds & Active Scripts Active Bactrim DS (Sulfamethoxazole-Trimethoprim) 800-160 Mg Tab 1 Tab PO BID Keflex (Cephalexin) 500 Mg Cap 500 Mg PO Q8H Review of Systems General / Constitutional: No: Fever Eyes: No: Visual changes HENT: No: Headaches Cardiovascular: No: Chest Pain or Discomfort Respiratory: No: Shortness of Breath Gastrointestinal: No: Abdominal Pain Genitourinary: No: Dysuria Musculoskeletal: No: Pain Skin: Positive Rash Neurologic: No: Weakness Psychiatric: No: Depression Endocrine: No: Polydipsia Hematologic/Lymphatic: No: Easy Bruising Physical Exam Narrative GENERAL: This is a well-nourished, well-developed patient, in no apparent distress. SKIN: Patient has skin breakdown, erythema, warmth and tenderness to the buttocks cheeks and perianal area. There is some weeping. It appears to be a fungal and bacterial co-infection. HEAD: Atraumatic. Normocephalic. EYES: PERRL, EOMI, no discharge or injection. No scleral icterus. EARS: Clear NOSE: Nasal turbinates appear normal. THROAT: Mucosa pink and moist. Airway patent. NECK: Trachea midline. supple, moves head freely. LUNGS: Clear to auscultation. CV: Regular in rhythm. ABDOMEN: Soft nontender. EXT: No clubbing cyanosis or edema. Data Data Last Documented VS Vital Signs Date Time Temp Pulse Resp B/P (MAP) Pulse Ox O2 Delivery O2 Flow Rate FiO2 01/13/17 20:47 98.5 85 16 134/70 (91) 99 Room Air MDM Medical Decision Making Medical Screen Exam Complete: Yes Emergency Medical Condition: Yes Medical Record Reviewed: Yes Differential Diagnosis MDM: High Differential diagnoses: Abscess, folliculitis, cellulitis, lymphangitis, abrasion, contact dermatitis Narrative Course This is a tinea cruris with secondary impetigo Diagnosis Primary Impression: Tinea cruris Additional Impression: Impetigo Patient Instructions: General Instructions Additional Instructions: Rest. Elevation. keep clean and dry. remove the packing in two days. Daily wound care with soap, water and Lamisil AT Keflex and Bactrim Follow-up with a primary care doctor in one week. Return to the ER for any problems. Med/Other Pt SpecificInfo: Prescription(s) given Scripts Sulfamethoxazole-Trimethoprim (Bactrim DS) 800-160 Mg Tab 1 TAB PO BID for Infection, #20 TAB 0 Refills Prov: Darby Blancas DO 01/13/17 Cephalexin (Keflex) 500 Mg Cap 500 MG PO Q8H for Infection, #30 CAP 0 Refills Prov: Darby Blancas DO 01/13/17 Disposition: 01 DISCHARGE HOME Condition: Stable Jacek Justice Jan 13, 2017 21:25
== END 2017-01-13 21:47 | disposition home or self-care (01) ==
LOC: NEPK 20:46
DX: B35.6 Tinea cruris (principal); L01.00 Impetigo, unspecified; F17.200 Nicotine dependence, unspecified, uncomplicated
CPT/HCPCS: 99284

== ENCOUNTER 2017-08-02 22:14 | Emergency (ER) | payer SELFPAY ==
[2017-08-02 22:30] VITALS: BP 131/80; PULSE 101; RESP 16; TEMP 97.1; O2SAT 99
[2017-08-02 23:03] VITALS: PULSE 92; RESP 14; O2SAT 98
--- NOTE | 2017-08-02 23:06 | PD ---
HPI Chief Complaint: Skin Problem Time Seen by Provider: 23:01 Travel History International Travel<30 days: No Contact w/Intl Traveler<30days: No Traveled to known affect area: No History of Present Illness HPI 37-year-old male presents to the emergency department for evaluation of multiple superficial abscesses to bilateral upper extremities. Patient admits to IV cocaine and heroin use. Patient states he recently completed a rehab facility stay and [facility] but within the past few weeks has returned to this area and started reinjecting cocaine and heroin. Last heroin use was today. Patient denies any fever or chills. Patient denies any ascending erythema or axillary tenderness or lymphadenopathy. Patient has no chronic medical conditions such as valvular heart disease, diabetes, or asthma. Patient also smokes cigarettes. Patient is here to have abscesses lanced if possible and to be started on oral antibiotic. Patient has set up resource here in the community to go through rehab here locally. The patient rates his pain 8/10 in intensity. Patient is unable to identify exacerbating or alleviating factors other than known IV drug abuse. PFSH Past Medical History Narrative Medical IV drug abuse hepatitis C; tobacco use; nursing notes Hx Anticoagulant Therapy: No Cancer: No Cardiovascular Problems: No Chemotherapy: No Cerebrovascular Accident: No Diabetes: No Diminished Hearing: No Endocrine: No Genitourinary: No Hepatitis: Yes (Hep C) Immune Disorder: No Musculoskeletal: No Neurologic: No Psychiatric: No Reproductive: No Respiratory: No Integumentary: Yes (IVDA) Immunizations Current: Yes Radiation Therapy: No Influenza Vaccination: No Past Surgical History Hysterectomy: No Other Surgery: Yes (r arm) Social History Alcohol Use: Yes (RARELY) Tobacco Use: Yes (1 PPD) Substance Use: Yes (heroin) Allergies-Medications (Allergen,Severity, Reaction): Coded Allergies: No Known Allergies (Unverified Adverse Reaction, Unknown, 08/02/17) Reported Meds & Prescriptions Reported Meds & Active Scripts Active No Active Prescriptions or Reported Medications Review of Systems Except as stated in HPI: all other systems reviewed are Neg General / Constitutional: No: Fever, Chills HENT: No: Congestion Cardiovascular: No: Chest Pain or Discomfort Respiratory: No: Shortness of Breath Gastrointestinal: No: Nausea, Vomiting Genitourinary: No: Dysuria, Flank Pain Musculoskeletal: No: Myalgias, Arthralgias Skin: Positive Rash, Positive Lumps Neurologic: No: Weakness, Dizziness, Syncope, Focal Abnormalities, Coordination Problem Psychiatric: Positive: Substance Abuse, No: Anxiety, Suicidal Ideations, Homicidal Ideation Endocrine: No: Heat Intolerance, Cold Intolerance Hematologic/Lymphatic: No: Easy Bruising Physical Exam Narrative GENERAL: Well-developed well-nourished male no acute distress no respiratory distress; GCS 15 SKIN: Warm and dry. HEAD: Normocephalic. EYES: No scleral icterus. No injection or drainage. NECK: Supple, trachea midline. No JVD or lymphadenopathy. CARDIOVASCULAR: Regular rate and rhythm without murmurs, gallops, or rubs. No murmur to auscultation. RESPIRATORY: Breath sounds equal bilaterally. No accessory muscle use. GASTROINTESTINAL: Abdomen soft, non-tender, nondistended. MUSCULOSKELETAL: No cyanosis, or edema. Bilateral upper extremities with areas of erythema induration and fluctuance consistent with superficial abscesses distally extremities neurovascular tendon intact with radial and ulnar pulses 2 + to palpation no axillary lymphadenopathy or tenderness. BACK: Nontender without obvious deformity. No CVA tenderness. Data Data Last Documented VS Vital Signs Date Time Temp Pulse Resp B/P (MAP) Pulse Ox O2 Delivery O2 Flow Rate FiO2 08/02/17 23:03 92 14 98 Room Air 08/02/17 22:30 97.1 131/80 (97) Orders Orders Blood Culture (08/02/17 23:06) Wound Culture And Gram Stain (08/02/17 23:06) Iv Access Insert/Monitor (08/02/17 23:06) Clindamycin Inj (Cleocin Inj) (08/02/17 23:15) Lidocaine Pf 1% Inj (Xylocaine-Mpf 1% In (08/02/17 23:15) MDM Medical Decision Making Medical Screen Exam Complete: Yes Emergency Medical Condition: Yes Medical Record Reviewed: Yes Differential Diagnosis Cellulitis, abscess, sepsis, IV drug abuse Narrative Course IV access obtained patient will be administered clindamycin 900 mg IV piggyback ; cultures will be obtained; currently patient does not meet sirs/sepsis criteria heart rate is only 101 but on repeat is in normal range no tachypnea no fever patient denies any recent fever. Procedures Procedure Narrative After the risks and benefits were discussed the following procedure was performed: INCISION AND DRAINAGE OF ABSCESS: The area was prepped and was sterilely draped. A subcutaneous wheal of 1 % Xylocaine with a total number 2 mL was used to anesthetize the area. The area was properly anesthetized. A number 11 scalpel was used to make a 1.5-cm incision across the area of the abscess. Cultures were obtained. The abscess was drained an irrigated with normal saline. Quarter inch iodoform packing was placed in the wound. Sterile dressing applied. Patient advised to have packing removed in two days. Diagnosis Primary Impression: Abscess of right forearm Additional Impressions: Encounter for incision and drainage procedure Abscess of left forearm Referrals: Primary Care Physician 2 days [facility] 1 day Patient Instructions: General Instructions Additional Instructions: follow-up with [facility] or rehab Return to the emergency department or primary care provider's office in 2 days for packing removal; also return to the emergency department for pain or fever or any concerns Complete course of antibiotic as prescribed Go to Detox facility regarding substance use Take acetaminophen/Tylenol as needed for fever 100.4F or greater Take ibuprofen/Advil/Motrin 600 mg as often as every 6 hours as needed for fever 100.4F or greater for pain associated with inflammation Med/Other Pt SpecificInfo: Prescription(s) given Scripts Sulfamethoxazole-Trimethoprim (Bactrim DS) 800-160 Mg Tab 1 TAB PO BID for Infection, #14 TAB 0 Refills Prov: Nichole Burroughs MD 08/03/17 Clindamycin (Clindamycin) 150 Mg Cap 300 MG PO Q6H for Infection for 7 Days, #56 CAP 0 Refills Prov: Nichole Burroughs MD 08/03/17 Nichole Burroughs MD Aug 02, 2017 23:06
[2017-08-02] MEDS ORDERED: LIDOCAINE HCL 1% PF 30 ML VIAL INFIL ONE (23:15)
[2017-08-02] MEDS ORDERED: CLINDAMYCIN INJ 900 MG in SODIUM CHLORIDE 0.9% INJ 100 ML IV ONE (23:15)
[2017-08-03] MEDS ORDERED: CLIN150C14 PO (00:25)
[2017-08-03] MEDS ORDERED: BACT800T5 PO (00:25)
== END 2017-08-03 00:39 | disposition home or self-care (01) ==
LOC: NEPC 22:14
DX: L02.413 Cutaneous abscess of right upper limb (principal); L02.414 Cutaneous abscess of left upper limb; F17.200 Nicotine dependence, unspecified, uncomplicated
CPT/HCPCS: 10061; 86403; 87040; 87070; 87186; 96365